=== PATIENT | male | born 1975 ===

== ENCOUNTER 2020-03-25 12:56 | Inpatient (IN) | payer OTHER ==
[2020-03-25] MEDS ORDERED: MORPHINE 2 MG/1 ML INJ IV ONE (14:46)
[2020-03-25] MEDS ORDERED: SODIUM CHLORIDE 0.9% 1000 ML 1,000 ML IV ONE (14:47)
[2020-03-25 16:42] LABS: Hematocrit 21.5 % (35.5-45.6); Hemoglobin 7.3 gm/dl (11.8-15.2); Mean Corpuscular HGB Conc 34 % (32-34); Mean Corpuscular Volume 104 fl (84-94); Platelet Count 244 K/mm3 (140-440); Red Blood Count 2.07 M/mm3 (3.65-5.03)
--- NOTE | 2020-03-25 18:05 | Emergency Department Report ---
Blank Doc - Documentation Documentation: 44-year-old -[place] male currently incarcerated presents emergency de partment complaining of having a sickle cell flareup he currently has a port to the right chest which he presents to the emergency department from the detention he has been in the detention from March 12 till today. Only gets Procrit every but missed it was diagnosed as well has been feeling increasingly more weak and fatigued with some diffuse body aches and pains This initial assessment/diagnostic orders/clinical plan/treatment(s) is/are subject to change based on patients health status, clinical progression and re- assessment by fellow clinical providers in the ED. Further treatment and workup at subsequent clinical providers discretion. Patient/guardian urged not to elope from the ED as their condition may be serious if not clinically assessed and managed. Initial orders include: Sickle cell evaluation
[2020-03-25 20:03] LABS: Anisocytosis 1+; Total Cells Counted 100
[2020-03-25 20:48] LABS: Burr Cells Rare; Ovalocytes Rare; Target Cells Rare
[2020-03-25 20:49] LABS: Platelet Estimate Consistent w Auto; Tear Drop Cells Rare
[2020-03-25] MEDS ORDERED: oxyCODONE /ACETAMINOPHEN 5-325MG TAB PO ONE (21:50)
[2020-03-25] MEDS ORDERED: ONDANSETRON 4 MG/2 ML INJ IV STA (21:55)
[2020-03-25] MEDS ORDERED: HYDROmorphone 1 MG/1 ML INJ IV ONE (22:25)
--- NOTE | 2020-03-25 22:27 | Emergency Department Report ---
ED General Adult HPI - General Chief complaint: Sickle Cell Crisis Stated complaint: SICKLE CELL CRISIS PUI?: No Time Seen by Provider: 03/25/20 22:06 Source: patient, police, RN notes reviewed Mode of arrival: Stretcher Limitations: Physical Limitation - History of Present Illness Initial comments: The patient was evaluated in the emergency department for symptoms described in the history of present illness. He/she was evaluated in the context of the global COVID-19 pandemic, which necessitated consideration that the patient might be at risk for infection with the virus that causes COVID-19. Institutional protocols and algorithms that pertain to the evaluation of patients at risk for COVID-19 are in a state of rapid change based on information released by regulatory bodies including the CDC and federal and state organizations. These policies and algorithms were followed during the patient's care in the emergency department. Please note that these policies, procedures and recommendations changed on a rapid basis. Patient is a pleasant 44-year-old gentleman who is not known to myself previously. Unfortunately, he is currently incarcerated, reports a history of stage IV renal insufficiency, sickle cell disease, and gout. Apparently, his hematology performance solutions specialist is Dr. Nielsen. His oracle drm consultant works at [employer]. He presents to the ER with a complaint of 11 days of sickle cell pain crisis. He typically gets hydrocodone and folic acid, but secondary to be incarcerated, he reports that he is not been able to get his medications on a regular basis. He describes diffuse body pain, myalgias and arthralgias, abdominal cramping, mild nausea. No headache or neck pain, no chest pain. No fever, no loss of taste, no loss of smell, denies cough to myself, no diarrhea, no dysuria, has scant urine production. He has a right-sided thoracic wall port, which has apparently been accessed at the [facility], where he reports he is received IV fluids, but no intravenous analgesia. Pain is sharp, throbbing and aching, increases with palpation, range of motion, decreases with rest, position, and pain medication. Patient specifically denies loss of taste, loss of smell, fever, and exposure to known Covid individuals. -: Gradual, days(s) Location: back, abdomen, left, right, upper extremity, lower extremity Severity scale (0 -10): 8 Consistency: constant Improves with: rest Worsens with: movement - Related Data Allergies Allergy/AdvReac Type Severity Reaction Status Date / Time ketorolac [From Toradol] Allergy Unknown Verified 03/25/20 13:12 promethazine [From Phenergan] Allergy Unknown Verified 03/25/20 13:12 ED Review of Systems ROS: Stated complaint: SICKLE CELL CRISIS Other details as noted in HPI Constitutional: malaise, weakness. denies: fever Eyes: denies: eye discharge ENT: denies: congestion Respiratory: denies: cough Cardiovascular: denies: chest pain Gastrointestinal: abdominal pain, nausea Genitourinary: denies: dysuria Musculoskeletal: back pain, arthralgia, myalgia Neurological: weakness Psychiatric: anxiety Hematological/Lymphatic: denies: easy bleeding ED Past Medical Hx - Past Medical History Previous Medical History?: Yes Hx Sickle Cell Disease: Yes Additional medical history: Gout. Stage IV kidney failure - Surgical History Past Surgical History?: Yes Additional Surgical History: Right hip replacement - Social History Smoking Status: Never Smoker Substance Use Type: None ED Physical Exam - General Limitations: Physical Limitation General appearance: alert, anxious, in distress - Head Head exam: Present: atraumatic, normocephalic - Eye Eye exam: Present: normal appearance, EOMI. Absent: nystagmus - ENT ENT exam: Present: mucous membranes dry, normal external ear exam - Neck Neck exam: Present: normal inspection, full ROM. Absent: tenderness, meningismus - Respiratory Respiratory exam: Present: normal lung sounds bilaterally. Absent: respiratory distress, wheezes, rales, rhonchi, stridor - Cardiovascular Cardiovascular Exam: Present: regular rate, normal rhythm, normal heart sounds. Absent: bradycardia, tachycardia, irregular rhythm, systolic murmur, diastolic murmur, rubs, gallop - GI/Abdominal GI/Abdominal exam: Present: soft, tenderness. Absent: distended, guarding, rebound, pulsatile mass, hernia - Rectal Rectal exam: Present: deferred - Extremities Exam Extremities exam: Present: normal inspection, full ROM, tenderness (There is diffuse long bony tenderness in the bilateral upper and lower extremities), other (2+ pulses noted in the bilateral upper and lower extremity) - Back Exam Back exam: Present: normal inspection, paraspinal tenderness. Absent: tenderness - Neurological Exam Neurological exam: Present: alert, other (No facial droop. Tongue midline. Extraocular movements intact bilaterally. Facial sensation intact to light katy ch in V1, V2, V3 distribution bilaterally. 5 and a 5 strength in 4 extremities. Sensation intact to light touch in 4 extremities.) - Psychiatric Psychiatric exam: Present: anxious - Skin Skin exam: Present: warm, dry, intact, normal color. Absent: rash ED Course Vital Signs 03/25/20 03/25/20 03/25/20 14:51 19:04 22:03 Temperature 97.9 F 98.5 F Pulse Rate 83 90 Respiratory 20 20 18 Rate Blood Pressure 154/100 Blood Pressure 158/110 [Right] O2 Sat by Pulse 100 98 Oximetry - Reevaluation(s) Reevaluation #1: 03/25/20 22:53 Differential diagnosis, including but not limited to: Sickle cell crisis, pneumonia, urinary tract infection, intra-abdominal infection, dehydration, electrolyte derangement Assessment and plan: 44-year-old gentleman with complex past medical history, including sickle cell, gout, and reported stage IV renal insufficiency. Access port, start gentle fluids, initiate analgesia, place patient on pvc monitor, obtain CT scan of the abdomen pelvis, urinalysis, appropriate laboratory studies, and reassess. Discussed plan of care with the patient, who verbalized understanding, and who is amenable to this plan of care. Reevaluation #2: 03/26/20 01:01 Patient reassessed multiple times. Has required multiple rounds of pain medication. In addition, laboratory studies demonstrate hyperkalemia, potassium 6.7, not hemolyzed, hypoglycemia, metabolic acidosis, renal insufficiency. Contacted the lab myself, and they verified that hyperkalemia is noted an error, and that the potassium is not hemolyzed. Patient put in for Accu-Cheks, and we will continue dextrose fluid. He will be given the hyperkalemia cocktail, with the exception of insulin, given his hypoglycemia. I contacted nephrology on-call, Dr. Costello, and discussed the patient's history, physical, and pertinent laboratory studies. He agrees with the plan of care, and will consult on the patient. I advised the patient that he meets criteria for admission/hospitalization, and we have recommended admission. The patient is amenable to this plan of care. Hospital physician, Dr. Willie Chen to admit ED Medical Decision Making - Lab Data Result diagrams: 03/25/20 16:00 03/25/20 22:49 Vital Signs 03/25/20 03/25/20 03/25/20 14:51 19:04 22:03 Temperature 97.9 F 98.5 F Pulse Rate 83 90 Respiratory 20 20 18 Rate Blood Pressure 154/100 Blood Pressure 158/110 [Right] O2 Sat by Pulse 100 98 Oximetry Lab Results 03/25/20 Range/Units 16:00 WBC 16.4 H (4.5-11.0) K/mm3 RBC 2.07 L (3.65-5.03) M/mm3 Hgb 7.3 L (11.8-15.2) gm/dl Hct 21.5 L (35.5-45.6) % MCV 104 H (84-94) fl MCH 36 H (28-32) pg MCHC 34 (32-34) % RDW 18.0 H (13.2-15.2) % Plt Count 244 (140-440) K/mm3 Lymph # (Auto) Vault Service Mechanic Add Manual Diff Complete Total Counted 100 Seg Neuts % (Manual) 54.0 (40.0-70.0) % Band Neutrophils % 0 % Lymphocytes % (Manual) 36.0 H (13.4-35.0) % Reactive Lymphs % (Man) 0 % Monocytes % (Manual) 4.0 (0.0-7.3) % Eosinophils % (Manual) 4.0 (0.0-4.3) % Basophils % (Manual) 2.0 H (0.0-1.8) % Metamyelocytes % 0 % Myelocytes % 0 % Promyelocytes % 0 % Blast Cells % 0 % Nucleated RBC % 1.0 H (0.0-0.9) % Seg Neutrophils # Man 8.9 H (1.8-7.7) K/mm3 Band Neutrophils # 0.0 K/mm3 Lymphocytes # (Manual) 5.9 H (1.2-5.4) K/mm3 Abs React Lymphs (Man) 0.0 K/mm3 Monocytes # (Manual) 0.7 (0.0-0.8) K/mm3 Eosinophils # (Manual) 0.7 H (0.0-0.4) K/mm3 Basophils # (Manual) 0.3 H (0.0-0.1) K/mm3 Metamyelocytes # 0.0 K/mm3 Myelocytes # 0.0 K/mm3 Promyelocytes # 0.0 K/mm3 Blast Cells # 0.0 K/mm3 WBC Morphology Not Reportable Hypersegmented Neuts Not Reportable Hyposegmented Neuts Not Reportable Hypogranular Neuts Not Reportable Smudge Cells Not Reportable Toxic Granulation Not Reportable Toxic Vacuolation Not Reportable Dohle Bodies Not Reportable Pelger-Huet Anomaly Not Reportable Sammy Rods Not Reportable Platelet Estimate Consistent w auto Clumped Platelets Not Reportable Plt Clumps, EDTA Not Reportable Large Platelets Not Reportable Giant Platelets Not Reportable Platelet Satelliting Not Reportable Plt Morphology Comment Not Reportable RBC Morphology Not Reportable Dimorphic RBCs Not Reportable Polychromasia Not Reportable Hypochromasia Not Reportable Poikilocytosis Not Reportable Anisocytosis 1+ Microcytosis Few Macrocytosis Not Reportable Spherocytes Not Reportable Pappenheimer Bodies Not Reportable Sickle Cells Not Reportable Target Cells Rare Tear Drop Cells Rare Ovalocytes Rare Helmet Cells Not Reportable [place] Bodies Not Reportable [place] Rings Not Reportable [place] Cells Rare Bite Cells Not Reportable Crenated Cell Not Reportable Elliptocytes Not Reportable Acanthocytes (Spur) Not Reportable Rouleaux Not Reportable Hemoglobin C Crystals Not Reportable Schistocytes Not Reportable Malaria parasites Not Reportable Percent Retic 2.51 (0.78-2.58) % Teto Bodies Not Reportable Hem Pathologist Commnt No - EKG Data -: EKG Interpreted by Ar EKG shows normal: sinus rhythm Rate: tachycardia - EKG Data When compared to previous EKG there are: previous EKG unavailable 03/26/20 02:16 Sinus rhythm, tachycardia, 139 bpm, left axis deviation, left anterior fascicular block, motion artifact, nonspecific T wave abnormalities. The EKG is abnormal. The EKG is not a STEMI. No prior available for comparison. Intervals within normal limits. - Radiology Data Radiology results: pending, report reviewed, image reviewed Print Report Referring Physician: EDMOND ORTIZ Patient Name: RONEN YOUNG Date of : 1975 Sex: Male Report Date: 2020-03-25 Report Status: Finalized Findings [facility] [address] [place] [address] XRay Report Signed Patient: RONEN YOUNG MR#: [id number] : 1975 Acct:[id number] Age/Sex: 44 / M ADM Date: 03/25/20 Loc: ED Attending Dr: Ordering Physician: JUSTIN GUEVARA Date of Service: 03/25/20 Procedure(s): XR chest routine 2V Accession Number(s): [id number] cc: JUSTIN GUEVARA Fluoro Time In Minutes: CHEST 2 VIEWS INDICATION / CLINICAL INFORMATION: MAIN. Pain with elevated UVC. COMPARISON: None available. FINDINGS: SUPPORT DEVICES: Right chest wall Port-A-Cath with its tip at the superior atrial caval junction. HEART / MEDIASTINUM: Minimally enlarged cardiac silhouette. LUNGS / PLEURA: Bilateral coarsened interstitial lung markings are likely a chronic finding. No confluent infiltrates or pleural effusions. No pneumothorax. ADDITIONAL FINDINGS: Osteonecrosis of the bilateral humeral heads. Chronic osseous findings of the spine consistent with provided history of sickle cell disease. Prior cholecystectomy. IMPRESSION: 1. Bilateral coarsened interstitial lung markings are likely chronic finding. 2. No confluent infiltrates. 3. Right chest wall Port-A-Cath in appropriate position. 4. Osseous findings consistent with provided history of sickle cell disease. Signer Name: Donn Moore MD Signed: 03/25/2020 10:31 PM Workstation Name: [id number] Transcribed By: CH Dictated By: DONN MOORE Electronically Authenticated By: DONN MOORE Signed Date/Time: 03/25/202230 DD/ 28 TD/TT: Print Report Referring Physician: SUMIT VILLANUEVA Patient Name: RONEN YOUNG Date of : 1975 Sex: Male Report Date: 2020-03-25 Report Status: Finalized Findings [address] [address] Cat Scan Report Signed Patient: RONEN YOUNG MR#: [id number] : 1975 Acct:[id number] Age/Sex: 44 / M ADM Date: 03/25/20 Loc: ED Attending Dr: Ordering Physician: SUMIT VILLANUEVA MD Date of Service: 03/25/20 Procedure(s): CT abdomen pelvis wo con Accession Number(s): [id number] cc: SUMIT VILLANUEVA MD CT ABDOMEN AND PELVIS WITHOUT CONTRAST HISTORY: Abdominal pain, nausea, vomiting COMPARISON: None TECHNIQUE: Routine abdominal and pelvic CT exam performed without contrast. Lack of intravenous contrast limits evaluation of the vascular and solid organs.. All CT scans at this location are performed using CT dose reduction for ALARA by means of automated exposure control. FINDINGS: CT ABDOMEN: Lung Bases: There is mild chronic appearing interstitial disease in the included lung bases. There are also bilateral paraspinal masses in the lower thorax. The largest is on the left and measures 3.5 x 2.7 cm. Liver: No significant abnormality. Biliary: Gallbladder is surgically absent. 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 Pancreas: No significant abnormality. Adrenals: No significant abnormality. Kidneys: No acute findings. Small cyst in the left kidney. Lymphatics: No lymphadenopathy. Vasculature: No significant abnormality. Bowel/Peritoneum: No significant abnormality. No free air. No free fluid. Normal appendix. CT PELVIC: : No significant abnormality. Lymphatics: No lymphadenopathy. Osseous Structures: No aggressive appearing osseous lesions. There is diffuse heterogeneous appearance of the bone marrow consistent with sickle cell disease. There has been previous right hip are not last. 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 Additional Findings: None IMPRESSION: 1. No acute findings in the abdomen and pelvis. 2. Chronic findings consistent with sickle cell disease including heterogeneous appearance of the bone marrow diffusely, chronic bibasilar interstitial lung disease, and autosplenectomy. 3. Small paraspinal masses in the lower thoracic spine are indeterminate but could potentially indicate extra medullary hematopoiesis. Signer Name: Radu Queen MD Signed: 03/25/2020 10:58 PM Workstation Name: [id number] Transcribed By: LÓPEZ Dictated By: Radu Queen MD Electronically Authenticated By: Radu Queen MD Signed Date/Time: 03/25/202257 DD/ 54 TD/TT: Critical Care Time: Yes Critical care time in (mins) excluding proc time.: 35 Critical care attestation.: If time is entered above; I have spent that time in minutes in the direct care of this critically ill patient, excluding procedure time. ED Disposition Clinical Impression: Hyperkalemia, Metabolic acidosis, Hypoglycemia, Abdominal pain, Sickle cell anemia with crisis Disposition: DC-09 OP ADMIT IP TO THIS HOSP Is pt being admited?: Yes Does the pt Need Aspirin: No Condition: Fair
--- NOTE | 2020-03-25 22:35 | XRay Report ---
CHEST 2 VIEWS INDICATION / CLINICAL INFORMATION: MAIN. Pain with elevated UVC. COMPARISON: None available. FINDINGS: SUPPORT DEVICES: Right chest wall Port-A-Cath with its tip at the superior atrial caval junction. HEART / MEDIASTINUM: Minimally enlarged cardiac silhouette. LUNGS / PLEURA: Bilateral coarsened interstitial lung markings are likely a chronic finding. No confl uent infiltrates or pleural effusions. No pneumothorax. ADDITIONAL FINDINGS: Osteonecrosis of the bilateral humeral heads. Chronic osseous findings of the sp ine consistent with provided history of sickle cell disease. Prior cholecystectomy. IMPRESSION: 1. Bilateral coarsened interstitial lung markings are likely chronic finding. 2. No confluent infiltrates. 3. Right chest wall Port-A-Cath in appropriate position. 4. Osseous findings consistent with provided history of sickle cell disease. Signer Name: Donn Reyes MD Signed: 03/25/2020 10:31 PM Workstation Name: [id number]
--- NOTE | 2020-03-25 23:02 | Cat Scan Report ---
CT ABDOMEN AND PELVIS WITHOUT CONTRAST HISTORY: Abdominal pain, nausea, vomiting COMPARISON: None TECHNIQUE: Routine abdominal and pelvic CT exam performed without contrast. Lack of intravenous cont rast limits evaluation of the vascular and solid organs.. All CT scans at this location are performed using CT dose reduction for ALARA by means of automated exposure control. FINDINGS: CT ABDOMEN: Lung Bases: There is mild chronic appearing interstitial disease in the included lung bases. There ar e also bilateral paraspinal masses in the lower thorax. The largest is on the left and measures 3.5 x 2.7 cm. Liver: No significant abnormality. Biliary: Gallbladder is surgically absent. 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 Pancreas: No significant abnormality. Adrenals: No significant abnormality. Kidneys: No acute findings. Small cyst in the left kidney. Lymphatics: No lymphadenopathy. Vasculature: No significant abnormality. Bowel/Peritoneum: No significant abnormality. No free air. No free fluid. Normal appendix. CT PELVIC: : No significant abnormality. Lymphatics: No lymphadenopathy. Osseous Structures: No aggressive appearing osseous lesions. There is diffuse heterogeneous appearanc e of the bone marrow consistent with sickle cell disease. There has been previous right hip are not l ast. 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 Additional Findings: None IMPRESSION: 1. No acute findings in the abdomen and pelvis. 2. Chronic findings consistent with sickle cell disease including heterogeneous appearance of the bon e marrow diffusely, chronic bibasilar interstitial lung disease, and autosplenectomy. 3. Small paraspinal masses in the lower thoracic spine are indeterminate but could potentially indica te extra medullary hematopoiesis. Signer Name: Radu Queen MD Signed: 03/25/2020 10:58 PM Workstation Name: [email or web address]
[2020-03-25] MEDS: D5W/0.45% NACL 1,000 ML IV SCH (23:06)
[2020-03-26] MEDS ORDERED: HYDROmorphone 1 MG/1 ML INJ IV ONE (00:17)
[2020-03-26 00:39] LABS: Calcium 9.2 mg/dL (8.4-10.2)
[2020-03-26 00:40] LABS: Albumin 4.5 g/dL (3.9-5)
[2020-03-26] MEDS ORDERED: DEXTROSE 50% IN WATER (25GM) 50 ML VIAL IV PRN (00:52)
[2020-03-26 00:55] LABS: Bilirubin,Urine NEG (Negative); Blood,Urine NEG (Negative); Color,Urine Yellow (Yellow); Mucus,Urine FEW /HPF; Urobilinogen,Urine < 2.0 mg/dL (<2.0)
[2020-03-26 00:57] LABS: Protein,Urine >500 mg/dL (Negative)
[2020-03-26] MEDS ORDERED: ALBUTEROL 2.5 MG/3 ML NEBU IH ONE ×2 (01:00→02:43)
[2020-03-26] MEDS ORDERED: SODIUM POLYSTYRENE 15 GM/60 ML ORAL LIQD PO ONE (01:00)
[2020-03-26] MEDS ORDERED: CALCIUM GLUCONATE 1,000 MG in SODIUM CHLORIDE 0.9% 100 ML IV ONE (01:00)
[2020-03-26] MEDS ORDERED: SODIUM BICARB 8.4% 50 MEQ/50 ML SYRINGE IV ONE ×2 (01:00→02:57)
[2020-03-26] MEDS ORDERED: HYDROmorphone 1 MG/1 ML INJ IV STA (02:36)
[2020-03-26] MEDS ORDERED: HYDROmorphone 1 MG/1 ML INJ ONE (02:44)
[2020-03-26] MEDS ORDERED: MAGNESIUM HYDROXIDE (MOM) ORAL LIQD UDC PO PRN (02:58)
[2020-03-26] MEDS ORDERED: DEXTROSE 50% IN WATER (25GM) 50 ML SYRINGE IV PRN (03:00)
[2020-03-26] MEDS ORDERED: SODIUM POLYSTYRENE 15 GM/60 ML ORAL LIQD ONE (03:10)
[2020-03-26] MEDS ORDERED: diphenhydrAMINE 50 MG/ML VIAL ONE (04:08)
[2020-03-26] MEDS: diphenhydrAMINE 50 MG/ML VIAL IV PRN ×4 (04:10→19:28)
[2020-03-26] MEDS: D5W/0.45% NACL 1,000 ML IV SCH (04:20)
--- NOTE | 2020-03-26 04:22 | History and Physical Report ---
History of Present Illness Date of examination: 03/26/20 Date of admission: 03/26/20 01:07 Chief complaint: Generalized body aches and pain History of present illness: 44-year-old male with known history of sickle cell disease, chronic kidney disease and gout and who is currently incarcerated presented to the emergency room today complaining of generalized body aches and pain, abdominal cramping and nausea. Pain is more in the lower extremities and lower back. Patient follows up with a lard refiner at [employer] Dr. Nielsen. He is normally on hydrocodone and folic acid at home but he has not been able to get his medication on a regular basis because he is currently incarcerated. He denies any fever or chills, no shortness of breath, no headache or dizziness, no hematuria or dysuria, no chest pain. Work-up in the emergency room today reveals a hemoglobin of 7.3, Leukocytosis.Was hypoglycemic on arrival. He also has a hyperkalemia in addition to the renal failure. CT of the abdomen and pelvis reveals: 1. No acute findings in the abdomen and pelvis. 2. Chronic findings consistent with sickle cell disease including heterogeneous appearance of the bone marrow diffusely, chronic bibasilar interstitial lung disease, and autosplenectomy. 3. Small paraspinal masses in the lower thoracic spine are indeterminate but could potentially indicate extra medullary hematopoiesis. Chest x-ray reveals:1. Bilateral coarsened interstitial lung markings are likely chronic finding. 2. No confluent infiltrates. 3. Right chest wall Port-A-Cath in appropriate position. 4. Osseous findings consistent with provided history of sickle cell disease. Patient is being admitted for sickle cell pain crisis, renal failure and hyperkalemia. Past History Past Medical History: other (Sickle cell disease,CKD) Past Surgical History: Other (Port placement right anterior chest wall) Social history: other (Currently incarcerated) Family history: no significant family history Medications and Allergies Allergies Allergy/AdvReac Type Severity Reaction Status Date / Time ketorolac [From Toradol] Allergy Unknown Verified 03/25/20 13:12 promethazine [From Phenergan] Allergy Unknown Verified 03/25/20 13:12 Active Meds: Active Medications Acetaminophen (Tylenol) 650 mg PO Q4H PRN PRN Reason: Pain MILD(1-3)/Fever >100.5/KRISHNAMURTHY Bisacodyl (Dulcolax) 10 mg IA QDAY PRN PRN Reason: Constipation unrelieved by MOM Dextrose (D50w (25gm) Syringe) 0 ml IV Q30MIN PRN; Protocol PRN Reason: Hypoglycemia Diphenhydramine HCl (Benadryl) 25 mg IV Q6H PRN PRN Reason: Itching Last Admin: 03/26/20 04:10 Dose: 25 mg Documented by: Folic Acid (Folvite) 1 mg PO QDAY [facility] Heparin Sodium (Porcine) (Heparin) 5,000 unit SUB-Q Q8HR NARGIS Hydromorphone HCl (Dilaudid) 1 mg IV Q3H PRN PRN Reason: Pain , Severe (7-10) Dextrose/Sodium Chloride (D5/0.45ns) 1,000 mls @ 150 mls/hr IV DIRECT NARGIS Last Admin: 03/25/20 23:06 Dose: 150 mls/hr Documented by: Magnesium Hydroxide (Milk Of Magnesia) 30 ml PO Q4H PRN PRN Reason: Constipation Multivitamins (Theragran Tab) 1 each PO QDAY [facility] Ondansetron HCl (Zofran) 4 mg IV Q8H PRN PRN Reason: Nausea And Vomiting Senna (Senokot) 17.2 mg PO QHS NARGIS Sodium Chloride (Sodium Chloride Flush Syringe 10 Ml) 10 ml IV BID NARGIS Sodium Chloride (Sodium Chloride Flush Syringe 10 Ml) 10 ml IV PRN PRN PRN Reason: LINE FLUSH Review of Systems Constitutional: no fever, no chills Cardiovascular: no chest pain, no palpitations Respiratory: no cough, no shortness of breath Gastrointestinal: no abdominal pain, no nausea, no vomiting Genitourinary Male: no dysuria, no hematuria, no flank pain Musculoskeletal: low back pain, myalgias, no neck pain Integumentary: no rash, no pruritis Neurological: no headaches, no confusion Psychiatric: no anxiety, no depression Exam - Constitutional Vitals: Temp Pulse Resp BP Pulse Ox 98.5 F 139 H 17 124/82 99 03/25/20 19:04 03/26/20 03:46 03/26/20 03:46 03/26/20 03:46 03/26/20 03:46 General appearance: Present: no acute distress, well-nourished - EENT Eyes: Present: PERRL, EOM intact. Absent: scleral icterus ENT: hearing intact, clear oral mucosa, dentition normal - Neck Neck: Present: supple, normal ROM - Respiratory Respiratory effort: normal Respiratory: bilateral: CTA - Cardiovascular Rhythm: regular Heart Sounds: Present: S1 & S2. Absent: gallop, systolic murmur, diastolic murmur, rub - Extremities Extremities: no ischemia, pulses intact, pulses symmetrical, No edema, Full ROM, abnormal (Mild tenderness on legs bilaterally.) Peripheral Pulses: within normal limits - Abdominal General gastrointestinal: Present: soft, non-tender, non-distended, normal bowel sounds. Absent: mass - Integumentary Integumentary: Present: clear, warm, dry. Absent: rash - Musculoskeletal Musculoskeletal: strength equal bilaterally - Psychiatric Psychiatric: appropriate mood/affect, intact judgment & insight, memory intact, cooperative - Neurologic Neurologic: CNII-XII intact, no focal deficits, moves all extremities Results - Labs CBC & Chem 7: 03/25/20 16:00 03/25/20 22:49 Labs: Abnormal lab results 03/25/20 03/25/20 Range/Units 16:00 22:49 WBC 16.4 H (4.5-11.0) K/mm3 RBC 2.07 L (3.65-5.03) M/mm3 Hgb 7.3 L (11.8-15.2) gm/dl Hct 21.5 L (35.5-45.6) % MCV 104 H (84-94) fl MCH 36 H (28-32) pg RDW 18.0 H (13.2-15.2) % Lymphocytes % (Manual) 36.0 H (13.4-35.0) % Basophils % (Manual) 2.0 H (0.0-1.8) % Nucleated RBC % 1.0 H (0.0-0.9) % Seg Neutrophils # Man 8.9 H (1.8-7.7) K/mm3 Lymphocytes # (Manual) 5.9 H (1.2-5.4) K/mm3 Eosinophils # (Manual) 0.7 H (0.0-0.4) K/mm3 Basophils # (Manual) 0.3 H (0.0-0.1) K/mm3 Potassium 6.7 H* (3.6-5.0) mmol/L Chloride 110.6 H (98-107) mmol/L Carbon Dioxide 14 L (22-30) mmol/L BUN 29 H (9-20) mg/dL Creatinine 3.8 H (0.8-1.3) mg/dL Glucose 60 L (75-100) mg/dL Lipase 71 H (13-60) units/L Assessment and Plan - Patient Problems (1) Sickle cell anemia with crisis Current Visit: Yes Status: Acute Plan to address problem: Patient started on IV fluid. We also placed on IV analgesic medication. We will resume routine home medications. (2) CKD (chronic kidney disease) Current Visit: Yes Status: Acute Plan to address problem: Patient has known history of chronic kidney disease. We will place a consult to nephrology for evaluation. (3) Hyperkalemia Current Visit: Yes Status: Acute Plan to address problem: Patient given Kayexalate,calcium gluconate,sodium bicarbonate in the ER. Will monitor potassium levels. (4) Metabolic acidosis Current Visit: Yes Status: Acute Plan to address problem: Possibly from the chronic kidney disease. Will monitor chemistry (5) DVT prophylaxis Current Visit: Yes Status: Acute Plan to address problem: Patient placed on subcutaneous heparin. (6) Full code status Current Visit: Yes Status: Acute
[2020-03-26] MEDS ORDERED: D5W/0.45% NACL 1,000 ML IV SCH (05:00)
[2020-03-26] MEDS: HYDROmorphone 1 MG/1 ML INJ IV PRN ×2 (05:32→10:07)
[2020-03-26] MEDS: HEPARIN 5,000 UNIT/1 ML VIAL SUB-Q SCH ×3 (05:35→21:43)
[2020-03-26] MEDS: ONDANSETRON 4 MG/2 ML INJ IV PRN (05:41)
[2020-03-26 06:21] LABS: Calcium 8.6 mg/dL (8.4-10.2); Mean Corpuscular HGB Conc 34 % (32-34); Mean Corpuscular Volume 105 fl (84-94); Platelet Count 188 K/mm3 (140-440); Red Blood Count 1.64 M/mm3 (3.65-5.03); Red Cell Distribution Width 18.7 % (13.2-15.2)
[2020-03-26 06:24] LABS: Basophils % (Auto) 0.1 % (0.0-1.8); Eosinophils % (Auto) 0.3 % (0.0-4.3); Lymphocytes # (Auto) 0.3 K/mm3 (1.2-5.4); Lymphocytes % (Auto) 2.2 % (13.4-35.0); Monocytes # (Auto) 0.1 K/mm3 (0.0-0.8); Monocytes % (Auto) 0.6 % (0.0-7.3)
[2020-03-26 06:28] LABS: Hemoglobin 5.8 gm/dl (11.8-15.2)
[2020-03-26 06:29] LABS: Hematocrit 17.2 % (35.5-45.6)
[2020-03-26] MEDS ORDERED: SODIUM CHLORIDE 0.9% 500 ML 500 ML IV NR (08:21)
--- NOTE | 2020-03-26 08:46 | Hem/Onc Consultation ---
History of Present Illness - History of Present Illness HEME DATA REVIEW 44yo disabled AA man with SCD, CKD creat 4 came from nursing home per notes unable to get pain med hydrocodone c/o pain and nausea CT of the abdomen and pelvis reveals: 1. No acute findings in the abdomen and pelvis. 2. Chronic findings consistent with sickle cell disease including heterogeneous appearance of the bone marrow diffusely, chronic bibasilar interstitial lung disease, and autosplenectomy. 3. Small paraspinal masses in the lower thoracic spine are indeterminate but could potentially indicate extra medullary hematopoiesis. Chest x-ray reveals:1. Bilateral coarsened interstitial lung markings are likely chronic finding. 2. No confluent infiltrates. 3. Right chest wall Port-A-Cath in appropriate position. 4. Osseous findings consistent with provided history of sickle cell disease. DATA REVIEW BELOW retic 2.5% IMPRESSION: sickle cell disease chronic pain could be due to SCD presumed chronic pain med requirement severe anemia due to chronic hemolytic anemia, hemodilution low retic count could be a problem-maybe "aplastic crisis" but probably related to CKD immunocompromised, with oz of infection but no obvious infection REC: RBC transfusions for goal HCT>23 (to help with pain control) opiate meds as needed for pain try to communicate with health care provider in his institution about pain meds labs to include LDH, hgb electrophoresis Vital Signs Temp Pulse Resp BP Pulse Ox 98.2 F 126 H 18 133/94 97 03/26/20 07:38 03/26/20 07:38 03/26/20 07:38 03/26/20 07:38 03/26/20 07:38 Temperature -Last 24 Hours Temperature 98.2 F Temperature 99.7 F Temperature 98.4 F Temperature 98.5 F Temperature 97.9 F Active Medications Folic Acid (Folvite) 1 mg PO QDAY NARGIS Heparin Sodium (Porcine) (Heparin) 5,000 unit SUB-Q Q8HR NARGIS Last Admin: 03/26/20 05:35 Dose: 5,000 unit Documented by: Hydromorphone HCl (Dilaudid) 1 mg IV Q3H PRN PRN Reason: Pain , Severe (7-10) Last Admin: 03/26/20 05:32 Dose: 1 mg Documented by: Laboratory Last Values WBC 13.3 K/mm3 (4.5-11.0) H 03/26/20 05:00 Hgb 5.8 gm/dl (11.8-15.2) L* 03/26/20 05:00 Hct 17.2 % (35.5-45.6) L* 03/26/20 05:00 MCV 105 fl (84-94) H 03/26/20 05:00 Plt Count 188 K/mm3 (140-440) 03/26/20 05:00 Creatinine 4.2 mg/dL (0.8-1.3) H 03/26/20 05:00 Urine Mucus Few /HPF 03/26/20 00:32 Past History Past Medical History: other (Sickle cell disease,CKD) Past Surgical History: Other (Port placement right anterior chest wall) Social history: other (Currently incarcerated) Family history: no significant family history Medications and Allergies Allergies Allergy/AdvReac Type Severity Reaction Status Date / Time ketorolac [From Toradol] Allergy Unknown Verified 03/25/20 13:12 promethazine [From Phenergan] Allergy Unknown Verified 03/25/20 13:12 Active Meds: Active Medications Acetaminophen (Tylenol) 650 mg PO Q4H PRN PRN Reason: Pain MILD(1-3)/Fever >100.5/KRISHNAMURTHY Bisacodyl (Dulcolax) 10 mg SD QDAY PRN PRN Reason: Constipation unrelieved by MOM Dextrose (D50w (25gm) Syringe) 0 ml IV Q30MIN PRN; Protocol PRN Reason: Hypoglycemia Diphenhydramine HCl (Benadryl) 25 mg IV Q6H PRN PRN Reason: Itching Last Admin: 03/26/20 04:10 Dose: 25 mg Documented by: Folic Acid (Folvite) 1 mg PO QDAY NARGIS Heparin Sodium (Porcine) (Heparin) 5,000 unit SUB-Q Q8HR NARGIS Last Admin: 03/26/20 05:35 Dose: 5,000 unit Documented by: Hydromorphone HCl (Dilaudid) 1 mg IV Q3H PRN PRN Reason: Pain , Severe (7-10) Last Admin: 03/26/20 05:32 Dose: 1 mg Documented by: Dextrose/Sodium Chloride (D5/0.45ns) 1,000 mls @ 150 mls/hr IV DIRECT NARGIS Last Admin: 03/26/20 05:45 Dose: 150 mls/hr Documented by: Sodium Chloride (Nacl 0.9% 500 Ml) 500 mls @ 0 mls/hr IV ONCE NR Stop: 03/26/20 18:00 Magnesium Hydroxide (Milk Of Magnesia) 30 ml PO Q4H PRN PRN Reason: Constipation Multivitamins (Theragran Tab) 1 each PO QDAY NARGIS Ondansetron HCl (Zofran) 4 mg IV Q8H PRN PRN Reason: Nausea And Vomiting Last Admin: 03/26/20 05:41 Dose: 4 mg Documented by: Pedrito (Senokot) 17.2 mg PO QHS NARGIS Sodium Chloride (Sodium Chloride Flush Syringe 10 Ml) 10 ml IV BID NARGIS Sodium Chloride (Sodium Chloride Flush Syringe 10 Ml) 10 ml IV PRN PRN PRN Reason: LINE FLUSH Exam - Constitutional Vitals: Last Vital Signs Temp 98.2 F 03/26/20 07:38 Pulse 126 H 03/26/20 07:38 Resp 18 03/26/20 07:38 BP 133/94 03/26/20 07:38 Pulse Ox 97 03/26/20 07:38 Results - Labs lab Results: Laboratory Results - last 24 hr 03/25/20 03/25/20 03/26/20 16:00 22:49 00:32 WBC 16.4 H RBC 2.07 L Hgb 7.3 L Hct 21.5 L MCV 104 H MCH 36 H MCHC 34 RDW 18.0 H Plt Count 244 Lymph % (Auto) [place] % (Auto) Eos % (Auto) Baso % (Auto) Lymph # (Auto) Batch Heat Treat Operator [place] # (Auto) Eos # (Auto) Baso # (Auto) Add Manual Diff Complete Total Counted 100 Seg Neutrophils % Seg Neuts % (Manual) 54.0 Band Neutrophils % 0 Lymphocytes % (Manual) 36.0 H Reactive Lymphs % (Man) 0 Monocytes % (Manual) 4.0 Eosinophils % (Manual) 4.0 Basophils % (Manual) 2.0 H Metamyelocytes % 0 Myelocytes % 0 Promyelocytes % 0 Blast Cells % 0 Nucleated RBC % 1.0 H Seg Neutrophils # Seg Neutrophils # Man 8.9 H Band Neutrophils # 0.0 Lymphocytes # (Manual) 5.9 H Abs React Lymphs (Man) 0.0 Monocytes # (Manual) 0.7 Eosinophils # (Manual) 0.7 H Basophils # (Manual) 0.3 H Metamyelocytes # 0.0 Myelocytes # 0.0 Promyelocytes # 0.0 Blast Cells # 0.0 WBC Morphology Not Reportable Hypersegmented Neuts Not Reportable Hyposegmented Neuts Not Reportable Hypogranular Neuts Not Reportable Smudge Cells Not Reportable Toxic Granulation Not Reportable Toxic Vacuolation Not Reportable Dohle Bodies Not Reportable Pelger-Huet Anomaly Not Reportable Sammy Rods Not Reportable Platelet Estimate Consistent w auto Clumped Platelets Not Reportable Plt Clumps, EDTA Not Reportable Large Platelets Not Reportable Giant Platelets Not Reportable Platelet Satelliting Not Reportable Plt Morphology Comment Not Reportable RBC Morphology Not Reportable Dimorphic RBCs Not Reportable Polychromasia Not Reportable Hypochromasia Not Reportable Poikilocytosis Not Reportable Anisocytosis 1+ Microcytosis Few Macrocytosis Not Reportable Spherocytes Not Reportable Pappenheimer Bodies Not Reportable Sickle Cells Not Reportable Target Cells Rare Tear Drop Cells Rare Ovalocytes Rare Helmet Cells Not Reportable Shen-Eschbach Bodies Not Reportable [place] Rings Not Reportable [place] Cells Rare Bite Cells Not Reportable Crenated Cell Not Reportable Elliptocytes Not Reportable Acanthocytes (Spur) Not Reportable Rouleaux Not Reportable Hemoglobin C Crystals Not Reportable Schistocytes Not Reportable Malaria parasites Not Reportable Percent Retic 2.51 Teto Bodies Not Reportable Hem Pathologist Commnt No Sodium 138 Potassium 6.7 H* Chloride 110.6 H Carbon Dioxide 14 L Anion Gap 20 BUN 29 H Creatinine 3.8 H Estimated GFR 17 BUN/Creatinine Ratio 8 Glucose 60 L Calcium 9.2 Magnesium 2.20 Total Bilirubin 0.90 AST 29 ALT 22 Alkaline Phosphatase 109 Total Creatine Kinase 113 Total Protein 7.7 Albumin 4.5 Albumin/Globulin Ratio 1.4 Lipase 71 H Urine Color Yellow Urine Turbidity Clear Urine pH 5.0 Ur Specific [place] 1.012 Urine Protein >500 Urine Glucose (UA) Neg Urine Ketones Neg Urine Blood Neg Urine Nitrite Neg Urine Bilirubin Neg Urine Urobilinogen < 2.0 Ur Leukocyte Esterase Neg Urine WBC (Auto) 3.0 Urine RBC (Auto) 4.0 U Epithel Cells (Auto) < 1.0 Urine Mucus Few 03/26/20 03/26/20 03/26/20 05:00 05:00 05:48 WBC 13.3 H RBC 1.64 L Hgb 5.8 L* Hct 17.2 L* MCV 105 H MCH 36 H MCHC 34 RDW 18.7 H Plt Count 188 Lymph % (Auto) 2.2 L [place] % (Auto) 0.6 Eos % (Auto) 0.3 Baso % (Auto) 0.1 Lymph # (Auto) 0.3 L [place] # (Auto) 0.1 Eos # (Auto) 0.0 Baso # (Auto) 0.0 Add Manual Diff Total Counted Seg Neutrophils % Batch Heat Treat Operator Seg Neuts % (Manual) Band Neutrophils % Lymphocytes % (Manual) Reactive Lymphs % (Man) Monocytes % (Manual) Eosinophils % (Manual) Basophils % (Manual) Metamyelocytes % Myelocytes % Promyelocytes % Blast Cells % Nucleated RBC % Seg Neutrophils # 12.9 H Seg Neutrophils # Man Band Neutrophils # Lymphocytes # (Manual) Abs React Lymphs (Man) Monocytes # (Manual) Eosinophils # (Manual) Basophils # (Manual) Metamyelocytes # Myelocytes # Promyelocytes # Blast Cells # WBC Morphology Hypersegmented Neuts Hyposegmented Neuts Hypogranular Neuts Smudge Cells Toxic Granulation Toxic Vacuolation Dohle Bodies Pelger-Huet Anomaly Sammy Rods Platelet Estimate Clumped Platelets Plt Clumps, EDTA Large Platelets Giant Platelets Platelet Satelliting Plt Morphology Comment RBC Morphology Dimorphic RBCs Polychromasia Hypochromasia Poikilocytosis Anisocytosis Microcytosis Macrocytosis Spherocytes Pappenheimer Bodies Sickle Cells Target Cells Tear Drop Cells Ovalocytes Helmet Cells Shen-Eschbach Bodies [place] Rings [place] Cells Bite Cells Crenated Cell Elliptocytes Acanthocytes (Spur) Rouleaux Hemoglobin C Crystals Schistocytes Malaria parasites Percent Retic Teto Bodies Hem Pathologist Commnt Sodium 138 Potassium 4.4 D 4.6 Chloride 110.5 H Carbon Dioxide 15 L Anion Gap 17 BUN 33 H Creatinine 4.2 H Estimated GFR 15 BUN/Creatinine Ratio 8 Glucose 130 H Calcium 8.6 Magnesium Total Bilirubin AST ALT Alkaline Phosphatase Total Creatine Kinase Total Protein Albumin Albumin/Globulin Ratio Lipase Urine Color Urine Turbidity Urine pH Ur Specific [place] Urine Protein Urine Glucose (UA) Urine Ketones Urine Blood Urine Nitrite Urine Bilirubin Urine Urobilinogen Ur Leukocyte Esterase Urine WBC (Auto) Urine RBC (Auto) U Epithel Cells (Auto) Urine Mucus
[2020-03-26] MEDS: FOLIC ACID 1 MG TAB PO SCH (10:08)
[2020-03-26] MEDS: MULTIVITAMINS ,THERAPEUTIC TAB PO SCH (10:08)
--- NOTE | 2020-03-26 15:55 | Consultation ---
History of Present Illness - Reason for Consult Consult date: 03/26/20 acute renal failure, chronic renal failure, hyperkalemia - History of Present Illness The patient is a 44 YO male with history significant for Sickle cell disease, CKD stage 4 and Gout who presented to [facility] ED from local prison / long term with complain of generalized body aches & pain, abdominal cramping and nausea. Pain is more in the lower extremities and lower back. He used to take Hydrocodone and folic acid at home but he has not been able to get his medication on a regular basis because he is currently incarcerated. He denies any fever, chills, shortness of breath, headache, dizziness, vomiting, diarrhea, dysuria, hematuria no chest pain. In the ED Hb was 7.3, Wbc 16.4, K 6.7, Creat 3.8 and BUN 29. CXR revealed Bilateral coarsened interstitial lung markings are likely chronic finding. Patient was admitted for sickle cell pain crisis, KAILA and Hyperkalemia. Nephrology was consulted for further evaluation. Past History Past Medical History: other (Sickle cell disease, CKD) Past Surgical History: Other (Port placement right anterior chest wall) Social history: other (Currently incarcerated) Family history: no significant family history Medications and Allergies Allergies Allergy/AdvReac Type Severity Reaction Status Date / Time ketorolac [From Toradol] Allergy Unknown Verified 03/25/20 13:12 promethazine [From Phenergan] Allergy Unknown Verified 03/25/20 13:12 Active Meds: Active Medications Acetaminophen (Tylenol) 650 mg PO Q4H PRN PRN Reason: Pain MILD(1-3)/Fever >100.5/KRISHNAMURTHY Bisacodyl (Dulcolax) 10 mg MS QDAY PRN PRN Reason: Constipation unrelieved by MOM Dextrose (D50w (25gm) Syringe) 0 ml IV Q30MIN PRN; Protocol PRN Reason: Hypoglycemia Diphenhydramine HCl (Benadryl) 25 mg IV Q6H PRN PRN Reason: Itching Last Admin: 03/26/20 10:07 Dose: 25 mg Documented by: Epoetin Hasmukh (Procrit) 10,000 unit SUB-Q DANNA ONE Stop: 03/26/20 17:01 Folic Acid (Folvite) 1 mg PO QDAY NARGIS Last Admin: 03/26/20 10:08 Dose: 1 mg Documented by: Heparin Sodium (Porcine) (Heparin) 5,000 unit SUB-Q Q8HR [facility] Last Admin: 03/26/20 05:35 Dose: 5,000 unit Documented by: Hydromorphone HCl (Dilaudid) 2 mg IV Q3H PRN PRN Reason: Pain , Severe (7-10) Dextrose/Sodium Chloride (D5/0.45ns) 1,000 mls @ 150 mls/hr IV DIRECT [facility] Last Admin: 03/26/20 05:45 Dose: 150 mls/hr Documented by: Sodium Chloride (Nacl 0.9% 500 Ml) 500 mls @ 0 mls/hr IV ONCE NR Stop: 03/26/20 18:00 Magnesium Hydroxide (Milk Of Magnesia) 30 ml PO Q4H PRN PRN Reason: Constipation Multivitamins (Theragran Tab) 1 each PO QDAY [facility] Last Admin: 03/26/20 10:08 Dose: 1 each Documented by: Ondansetron HCl (Zofran) 4 mg IV Q8H PRN PRN Reason: Nausea And Vomiting Last Admin: 03/26/20 05:41 Dose: 4 mg Documented by: Senna (Senokot) 17.2 mg PO QHS [facility] Sodium Chloride (Sodium Chloride Flush Syringe 10 Ml) 10 ml IV BID [facility] Last Admin: 03/26/20 10:08 Dose: 10 ml Documented by: Sodium Chloride (Sodium Chloride Flush Syringe 10 Ml) 10 ml IV PRN PRN PRN Reason: LINE FLUSH Review of Systems Constitutional: no weight loss, no weight gain, no fever, no chills, no anor exia, no fatigue Cardiovascular: no chest pain, no orthopnea, no edema, no syncope, no lightheadedness, no shortness of breath Respiratory: no cough, no cough with sputum, no hemoptysis, no shortness of breath Gastrointestinal: abdominal pain, nausea, no vomiting, no diarrhea, no melena, no hematochezia Genitourinary Male: no dysuria, no hematuria Integumentary: no redness, no jaundice Neurological: no paralysis, no seizures, no syncope, no convulsions, no aphasia, no change in speech, no change in mentation, no confusion, no memory loss Exam - Vital Signs Vital signs: Vital Signs Temp Pulse Resp BP Pulse Ox 97.9 F 83 20 158/110 100 03/25/20 14:51 03/25/20 14:51 03/25/20 14:51 03/25/20 14:51 03/25/20 14:51 Results - Lab Results 03/26/20 05:00 03/26/20 05:48 Most recent lab results Calcium 8.6 mg/dL (8.4-10.2) 03/26/20 05:00 Magnesium 2.20 mg/dL (1.7-2.3) 03/25/20 22:49 Assessment and Plan 1. Acute kidney injury: Vasomotor KAILA superimposed on CKD stage 4 in the setting of volume depletion. CT abdomen negative for hydro. Urine studies ordered. Monitor renal function. Creatinine level is slightly increased today. Renal prognosis is guarded. Avoid nephrotoxic agents. Meds dosage based on GFR. Monitor for PHYSICIAN OFFICE NURSE needs. 2. FEN: Hyperkalemia, improved with medications, monitor. Hyperchloremic metabolic acidosis, change IV fluids to Sod bicarbonate drip, monitor. Monitor lytes and volume status. 3. Sickle cell crisis: IV fluids and pain meds. Followed by Heme-Onc. 4. Anemia, POA: Epogen. PRBC today. Monitor. Subjective: Patient was seen and examined at the bedside. Examination: General appearance: well-developed, appears stated age, not in distress HEENT: ATNC, pupils equal Neck: trachea midline Respiratory: ctab Heart: regular, S1S2, no murmur Gastrointestinal: soft, normoactive bowel sounds, not tender Integumentary: no rash, warm and dry Neurologic: alert, oriented, moving extremities Ext: no edema
--- NOTE | 2020-03-26 16:00 | Event Note ---
Date: 03/26/20 Patient seen and examined at bedside this morning Hemoglobin drop noted. Ordered 1 unit PRBCs Hematology oncology consulted Continue pain medications
[2020-03-26] MEDS: HYDROmorphone 2 MG/1 ML INJ IV PRN ×3 (16:11→23:30)
[2020-03-26] MEDS ORDERED: EPOETIN ALFA 10,000 UNIT/1 ML INJ SUB-Q ONE (17:00)
[2020-03-26 17:11] LABS: Hematocrit 15.6 % (35.5-45.6); Hemoglobin 5.5 gm/dl (11.8-15.2)
[2020-03-26] MEDS: SODIUM BICARBONATE 150 MEQ in DEXTROSE 5% IN WATER 1,000 ML IV SCH (17:26)
[2020-03-26] MEDS: ACETAMINOPHEN 325 MG TAB PO PRN (19:27)
[2020-03-26] MEDS: SENNOSIDES 8.6 MG TAB PO SCH (21:41)
[2020-03-27] MEDS: diphenhydrAMINE 50 MG/ML VIAL IV PRN ×3 (01:05→20:12)
[2020-03-27] MEDS: HYDROmorphone 2 MG/1 ML INJ IV PRN ×7 (02:59→23:05)
[2020-03-27] MEDS: ONDANSETRON 4 MG/2 ML INJ IV PRN ×3 (05:48→23:06)
[2020-03-27] MEDS: HEPARIN 5,000 UNIT/1 ML VIAL SUB-Q SCH ×3 (05:49→22:00)
[2020-03-27] MEDS: SODIUM BICARBONATE 150 MEQ in DEXTROSE 5% IN WATER 1,000 ML IV SCH (05:55)
[2020-03-27 06:29] LABS: INR 1.43 (0.87-1.13)
[2020-03-27 06:37] LABS: Mean Corpuscular HGB Conc 33 % (32-34); Mean Corpuscular Volume 98 fl (84-94); Platelet Count 158 K/mm3 (140-440); Red Blood Count 1.77 M/mm3 (3.65-5.03)
[2020-03-27 06:40] LABS: Red Cell Distribution Width 22.3 % (13.2-15.2)
[2020-03-27 06:42] LABS: Hematocrit 17.3 % (35.5-45.6); Hemoglobin 5.7 gm/dl (11.8-15.2)
[2020-03-27 06:48] LABS: Calcium 7.7 mg/dL (8.4-10.2)
[2020-03-27 09:09] LABS: Band Neutrophils # (Manual) 1.9 K/mm3; Basophils % (Manual) 0 % (0.0-1.8); Eosinophils % (Manual) 0 % (0.0-4.3); Total Cells Counted 100
[2020-03-27 09:13] LABS: Sickle Cells 1+
[2020-03-27 09:14] LABS: Anisocytosis 1+
[2020-03-27 09:15] LABS: Ovalocytes Few
[2020-03-27 09:16] LABS: Bite Cells Rare
[2020-03-27 09:17] LABS: Platelet Estimate Consistent w Auto
--- NOTE | 2020-03-27 09:55 | Progress Note ---
Assessment and Plan 1. Acute kidney injury: Vasomotor KAILA superimposed on CKD stage 4 in the setting of volume depletion. CT abdomen negative for hydro. Urine studies ordered. Continue IV fluids. Monitor renal function. Creatinine level continue to increase. Renal prognosis is guarded. Avoid nephrotoxic agents. Meds dosage based on GFR. 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 2. FEN: Hyperkalemia, improved with medications, monitor. Hyperchloremic metabolic acidosis, improved, monitor. Monitor lytes and volume status. 3. Sickle cell crisis: IV fluids and pain meds. Followed by Heme-Onc. 4. Anemia, POA: Epogen. S/p PRBC. Monitor. Subjective: Patient was seen and examined at the bedside. No new complaint. Examination: General appearance: well-developed, appears stated age, not in distress HEENT: ATNC, pupils equal Neck: trachea midline Respiratory: ctab Heart: regular, S1S2, no murmur Gastrointestinal: soft, normoactive bowel sounds, not tender Integumentary: no rash, warm and dry Neurologic: alert, oriented, moving extremities Ext: no edema Subjective Date of service: 03/27/20 Objective - Vital Signs Vital signs: Vital Signs - 12hr 03/26/20 03/26/20 03/27/20 22:31 22:51 06:06 Temperature 99.2 F 97.2 F L 99.3 F Pulse Rate 104 H 103 H 107 H Respiratory 20 18 18 Rate Blood Pressure 125/72 129/72 106/88 O2 Sat by Pulse 100 97 93 Oximetry 03/27/20 07:20 Temperature 98.3 F Pulse Rate 111 H Respiratory 18 Rate Blood Pressure 140/74 O2 Sat by Pulse 96 Oximetry - Lab 03/27/20 10:00 03/27/20 05:50 Most recent lab results Calcium 7.7 mg/dL (8.4-10.2) L 03/27/20 05:50 Phosphorus 2.70 mg/dL (2.5-4.5) 03/27/20 05:50 Magnesium 2.20 mg/dL (1.7-2.3) 03/25/20 22:49 Medications & Allergies - Medications Allergies/Adverse Reactions: Allergies ketorolac [From Toradol] Allergy (Verified 03/25/20 13:12) Unknown promethazine [From Phenergan] Allergy (Verified 03/25/20 13:12) Unknown Active Medications: Generic Name Dose Route Start Last Admin Trade Name Freq PRN Reason Stop Dose Admin Acetaminophen 650 mg 03/26/20 02:58 03/26/20 19:27 Tylenol PO 650 mg Q4H PRN Administration Pain MILD(1-3)/Fever >100.5/KRISHNAMURTHY Bisacodyl 10 mg 03/26/20 02:58 Dulcolax [place] QDAY PRN Constipation unrelieved by MOM Dextrose 0 ml 03/26/20 03:00 D50w (25gm) Syringe IV Q30MIN PRN Hypoglycemia Protocol Diphenhydramine HCl 25 mg 03/26/20 03:01 03/27/20 01:05 Benadryl IV 25 mg Q6H PRN Administration Itching Folic Acid 1 mg 03/26/20 10:00 03/26/20 10:08 Folvite PO 1 mg QDAY NARGIS Administration Heparin Sodium (Porcine) 5,000 unit 03/26/20 06:00 03/27/20 05:49 Heparin SUB-Q 5,000 unit Q8HR NARGIS Administration Hydromorphone HCl 2 mg 03/26/20 15:30 03/27/20 05:48 Dilaudid IV 2 mg Q3H PRN Administration Pain , Severe (7-10) Sodium Bicarbonate 150 meq/ 1,150 mls @ 75 mls/hr 03/26/20 17:00 03/27/20 05:55 Dextrose IV 75 mls/hr DIRECT NARGIS Administration Magnesium Hydroxide 30 ml 03/26/20 02:58 Milk Of Magnesia PO Q4H PRN Constipation Multivitamins 1 each 03/26/20 10:00 03/26/20 10:08 Theragran Tab PO 1 each QDAY NARGIS Administration Ondansetron HCl 4 mg 03/26/20 02:58 03/27/20 05:48 Zofran IV 4 mg Q8H PRN Administration Nausea And Vomiting Oxycodone/Acetaminophen 2 tab 03/27/20 08:06 Percocet 5/325 PO Q8H PRN Pain, Moderate (4-6) Senna 17.2 mg 03/26/20 22:00 03/26/20 21:41 Senokot PO 17.2 mg QHS NARGIS Administration Sodium Chloride 10 ml 03/26/20 10:00 03/26/20 21:43 Sodium Chloride Flush Syringe 10 Ml IV 10 ml BID NARGIS Administration Sodium Chloride 10 ml 03/26/20 02:58 Sodium Chloride Flush Syringe 10 Ml IV PRN PRN LINE FLUSH
[2020-03-27] MEDS: FOLIC ACID 1 MG TAB PO SCH (09:57)
[2020-03-27] MEDS: MULTIVITAMINS ,THERAPEUTIC TAB PO SCH (09:57)
[2020-03-27 11:59] LABS: Creatinine,Urine 71.3 mg/dL (0.1-20.0); Protein/Creatinine Ratio,Urine 1.32
--- NOTE | 2020-03-27 12:34 | Progress Note ---
Assessment and Plan Assessment and plan: (1) Sickle cell anemia with crisis Current Visit: Yes Status: Acute Plan to address problem: Hemoglobin remains less than 7 Transfuse today Hematology oncology recommendations appreciated (2) KAILA on also stressed to CKD (chronic kidney disease) Current Visit: Yes Status: Acute Plan to address problem: Improved From vasomotor nephropathy (3) Hyperkalemia Current Visit: Yes Status: Acute Plan to address problem: Improved (4) Metabolic acidosis Current Visit: Yes Status: Acute Plan to address problem: This has resolved Discontinue bicarbonate (5) DVT prophylaxis Current Visit: Yes Status: Acute Plan to address problem: Patient placed on subcutaneous heparin. (6) Full code status Current Visit: Yes Status: Acute History Interval history: Still has back pain. Denies any shortness of breath or palpitations. Hemoglobin still less than 7. Plan to transfuse as per hematology oncology Hospitalist Physical - Physical exam Narrative exam: VITAL SIGNS: Reviewed. GENERAL: Awake and alert on response to questions HEAD: No signs of head trauma. EYES: Pupils are equal. Extraocular motions intact. EARS: Hearing grossly intact. MOUTH: Oropharynx is normal. NECK: No adenopathy, no JVD. CHEST: Chest with diminished breath sounds bilaterally. No wheezes, rales, or rhonchi. CARDIAC: Regular rate and rhythm. S1 and S2, without murmurs, gallops, or rubs. VASCULAR: No Edema. Peripheral pulses normal and equal in all extremities. ABDOMEN: Soft, non tender and non distended. No rebound or guarding, and no masses palpated. Bowel Sounds normal. MUSCULOSKELETAL: Good range of motion of all major joints. Extremities without clubbing, cyanosis or edema. NEUROLOGIC EXAM: Alert and oriented x3. No focal neurologic deficits PSYCHIATRIC: Stable mood SKIN: No obvious lesions - Constitutional Vitals: Temp Pulse Resp BP Pulse Ox 98.2 F 107 H 18 141/66 97 03/27/20 11:29 03/27/20 11:29 03/27/20 11:29 03/27/20 11:29 03/27/20 11:29 Results - Labs CBC & Chem 7: 03/27/20 10:00 03/27/20 05:50 Labs: Laboratory Last Values WBC 31.1 K/mm3 (4.5-11.0) H 03/27/20 05:50 RBC 1.77 M/mm3 (3.65-5.03) L 03/27/20 05:50 Hgb 5.7 gm/dl (11.8-15.2) L* 03/27/20 05:50 Hct 17.3 % (35.5-45.6) L* 03/27/20 05:50 MCV 98 fl (84-94) H 03/27/20 05:50 MCH 33 pg (28-32) H 03/27/20 05:50 MCHC 33 % (32-34) 03/27/20 05:50 RDW 22.3 % (13.2-15.2) H 03/27/20 05:50 Plt Count 158 K/mm3 (140-440) 03/27/20 05:50 Lymph % (Auto) 2.2 % (13.4-35.0) L 03/26/20 05:00 Graham % (Auto) 0.6 % (0.0-7.3) 03/26/20 05:00 Eos % (Auto) 0.3 % (0.0-4.3) 03/26/20 05:00 Baso % (Auto) 0.1 % (0.0-1.8) 03/26/20 05:00 Lymph # (Auto) 0.3 K/mm3 (1.2-5.4) L 03/26/20 05:00 Graham # (Auto) 0.1 K/mm3 (0.0-0.8) 03/26/20 05:00 Eos # (Auto) 0.0 K/mm3 (0.0-0.4) 03/26/20 05:00 Baso # (Auto) 0.0 K/mm3 (0.0-0.1) 03/26/20 05:00 Add Manual Diff Complete 03/27/20 05:50 Total Counted 100 03/27/20 05:50 Seg Neutrophils % Dining Service Worker 03/26/20 05:00 Seg Neuts % (Manual) 81.0 % (40.0-70.0) H 03/27/20 05:50 Band Neutrophils % 6.0 % 03/27/20 05:50 Lymphocytes % (Manual) 12.0 % (13.4-35.0) L 03/27/20 05:50 Reactive Lymphs % (Man) 0 % 03/27/20 05:50 Monocytes % (Manual) 1.0 % (0.0-7.3) 03/27/20 05:50 Eosinophils % (Manual) 0 % (0.0-4.3) 03/27/20 05:50 Basophils % (Manual) 0 % (0.0-1.8) 03/27/20 05:50 Metamyelocytes % 0 % 03/27/20 05:50 Myelocytes % 0 % 03/27/20 05:50 Promyelocytes % 0 % 03/27/20 05:50 Blast Cells % 0 % 03/27/20 05:50 Nucleated RBC % 2.0 % (0.0-0.9) H 03/27/20 05:50 Seg Neutrophils # 12.9 K/mm3 (1.8-7.7) H 03/26/20 05:00 Seg Neutrophils # Man 25.2 K/mm3 (1.8-7.7) H 03/27/20 05:50 Band Neutrophils # 1.9 K/mm3 03/27/20 05:50 Lymphocytes # (Manual) 3.7 K/mm3 (1.2-5.4) 03/27/20 05:50 Abs React Lymphs (Man) 0.0 K/mm3 03/27/20 05:50 Monocytes # (Manual) 0.3 K/mm3 (0.0-0.8) 03/27/20 05:50 Eosinophils # (Manual) 0.0 K/mm3 (0.0-0.4) 03/27/20 05:50 Basophils # (Manual) 0.0 K/mm3 (0.0-0.1) 03/27/20 05:50 Metamyelocytes # 0.0 K/mm3 03/27/20 05:50 Myelocytes # 0.0 K/mm3 03/27/20 05:50 Promyelocytes # 0.0 K/mm3 03/27/20 05:50 Blast Cells # 0.0 K/mm3 03/27/20 05:50 WBC Morphology Not Reportable 03/27/20 05:50 Hypersegmented Neuts Not Reportable 03/27/20 05:50 Hyposegmented Neuts Not Reportable 03/27/20 05:50 Hypogranular Neuts Not Reportable 03/27/20 05:50 Smudge Cells Not Reportable 03/27/20 05:50 Toxic Granulation Not Reportable 03/27/20 05:50 Toxic Vacuolation Not Reportable 03/27/20 05:50 Dohle Bodies Not Reportable 03/27/20 05:50 Pelger-Huet Anomaly Not Reportable 03/27/20 05:50 Sammy Rods Not Reportable 03/27/20 05:50 Platelet Estimate Consistent w auto 03/27/20 05:50 Clumped Platelets Not Reportable 03/27/20 05:50 Plt Clumps, EDTA Not Reportable 03/27/20 05:50 Large Platelets Not Reportable 03/27/20 05:50 Giant Platelets Not Reportable 03/27/20 05:50 Platelet Satelliting Not Reportable 03/27/20 05:50 Plt Morphology Comment Not Reportable 03/27/20 05:50 RBC Morphology Not Reportable 03/27/20 05:50 Dimorphic RBCs Not Reportable 03/27/20 05:50 Polychromasia Not Reportable 03/27/20 05:50 Hypochromasia Not Reportable 03/27/20 05:50 Poikilocytosis Not Reportable 03/27/20 05:50 Anisocytosis 1+ 03/27/20 05:50 Microcytosis Not Reportable 03/27/20 05:50 Macrocytosis Not Reportable 03/27/20 05:50 Spherocytes Not Reportable 03/27/20 05:50 Pappenheimer Bodies Not Reportable 03/27/20 05:50 Sickle Cells 1+ 03/27/20 05:50 Target Cells Not Reportable 03/27/20 05:50 Tear Drop Cells Not Reportable 03/27/20 05:50 Ovalocytes Few 03/27/20 05:50 Helmet Cells Not Reportable 03/27/20 05:50 Shen-[place] Bodies Not Reportable 03/27/20 05:50 [place] Rings Not Reportable 03/27/20 05:50 Tamara Cells Not Reportable 03/27/20 05:50 Bite Cells Rare 03/27/20 05:50 Crenated Cell Not Reportable 03/27/20 05:50 Elliptocytes Not Reportable 03/27/20 05:50 Acanthocytes (Spur) Not Reportable 03/27/20 05:50 Rouleaux Not Reportable 03/27/20 05:50 Hemoglobin C Crystals Not Reportable 03/27/20 05:50 Schistocytes Not Reportable 03/27/20 05:50 Malaria parasites Not Reportable 03/27/20 05:50 Percent Retic 2.51 % (0.78-2.58) 03/25/20 16:00 Teto Bodies Not Reportable 03/27/20 05:50 Hem Pathologist Commnt No 03/27/20 05:50 PT 17.6 Sec. (12.2-14.9) H 03/27/20 05:50 INR 1.43 (0.87-1.13) H 03/27/20 05:50 Sodium 135 mmol/L (137-145) L 03/27/20 05:50 Potassium 4.6 mmol/L (3.6-5.0) 03/27/20 05:50 Chloride 103.9 mmol/L (98-107) 03/27/20 05:50 Carbon Dioxide 22 mmol/L (22-30) D 03/27/20 05:50 Anion Gap 14 mmol/L 03/27/20 05:50 BUN 40 mg/dL (9-20) H 03/27/20 05:50 Creatinine 5.0 mg/dL (0.8-1.3) H 03/27/20 05:50 Estimated GFR 13 ml/min 03/27/20 05:50 BUN/Creatinine Ratio 8 % 03/27/20 05:50 Glucose 98 mg/dL (75-100) 03/27/20 05:50 Calcium 7.7 mg/dL (8.4-10.2) L 03/27/20 05:50 Phosphorus 2.70 mg/dL (2.5-4.5) 03/27/20 05:50 Magnesium 2.20 mg/dL (1.7-2.3) 03/25/20 22:49 Total Bilirubin 0.90 mg/dL (0.1-1.2) 03/25/20 22:49 AST 29 units/L (5-40) 03/25/20 22:49 ALT 22 units/L (7-56) 03/25/20 22:49 Alkaline Phosphatase 109 units/L (35-129) 03/25/20 22:49 Lactate Dehydrogenase 405 units/L (91-180) H 03/26/20 05:48 Total Creatine Kinase 113 units/L (55-170) 03/25/20 22:49 Total Protein 7.7 g/dL (6.3-8.2) 03/25/20 22:49 Albumin 4.5 g/dL (3.9-5) 03/25/20 22:49 Albumin/Globulin Ratio 1.4 % 03/25/20 22:49 Lipase 71 units/L (13-60) H 03/25/20 22:49 Procalcitonin 163.07 ng/mL (<0.15) 03/26/20 16:17 PTH Intact 344.2 pg/mL (15-65) H 03/27/20 05:50 Urine Color Yellow (Yellow) 03/26/20 00:32 Urine Turbidity Clear (Clear) 03/26/20 00:32 Urine pH 5.0 (5.0-7.0) 03/26/20 00:32 Ur Specific [place] 1.012 (1.003-1.030) 03/26/20 00:32 Urine Protein >500 mg/dL (Negative) 03/26/20 00:32 Urine Glucose (UA) Neg mg/dL (Negative) 03/26/20 00:32 Urine Ketones Neg mg/dL (Negative) 03/26/20 00:32 Urine Blood Neg (Negative) 03/26/20 00:32 Urine Nitrite Neg (Negative) 03/26/20 00:32 Urine Bilirubin Neg (Negative) 03/26/20 00:32 Urine Urobilinogen < 2.0 mg/dL (<2.0) 03/26/20 00:32 Ur Leukocyte Esterase Neg (Negative) 03/26/20 00:32 Urine WBC (Auto) 3.0 /HPF (0.0-6.0) 03/26/20 00:32 Urine RBC (Auto) 4.0 /HPF (0.0-6.0) 03/26/20 00:32 U Epithel Cells (Auto) < 1.0 /HPF (0-13.0) 03/26/20 00:32 Urine Mucus Few /HPF 03/26/20 00:32 Urine Eosinophils None seen (None Seen) 03/26/20 03:11 Urine Creatinine 71.3 mg/dL (0.1-20.0) H 03/27/20 03:11 Protein/Creatinin Ratio 1.32 03/27/20 03:11 Urine Sodium 21 mmol/L 03/27/20 03:11 Urine Total Protein 94 mg/dL (5-11.8) H 03/27/20 03:11 Blood Type O POSITIVE 03/26/20 16:15 Antibody Screen Negative 03/26/20 16:15 Crossmatch See Detail 03/26/20 16:15 Rios/IV: Voiding Method Urinal IV Catheter Type [Right Chest] IVAD / Port Active Medications - Current Medications Current Medications: Generic Name Dose Route Start Last Admin Trade Name Freq PRN Reason Stop Dose Admin Acetaminophen 650 mg 03/26/20 02:58 03/26/20 19:27 Tylenol PO 650 mg Q4H PRN Administration Pain MILD(1-3)/Fever >100.5/KRISHNAMURTHY Bisacodyl 10 mg 03/26/20 02:58 Dulcolax [place] QDAY PRN Constipation unrelieved by MOM Dextrose 0 ml 03/26/20 03:00 D50w (25gm) Syringe IV Q30MIN PRN Hypoglycemia Protocol Diphenhydramine HCl 25 mg 03/26/20 03:01 03/27/20 01:05 Benadryl IV 25 mg Q6H PRN Administration Itching Folic Acid 1 mg 03/26/20 10:00 03/27/20 09:57 Folvite PO 1 mg QDAY NARGIS Administration Heparin Sodium (Porcine) 5,000 unit 03/26/20 06:00 03/27/20 05:49 Heparin SUB-Q 5,000 unit Q8HR NARGIS Administration Hydromorphone HCl 2 mg 03/26/20 15:30 03/27/20 09:56 Dilaudid IV 2 mg Q3H PRN Administration Pain , Severe (7-10) Sodium Bicarbonate 150 meq/ 1,150 mls @ 75 mls/hr 03/26/20 17:00 03/27/20 05:55 Dextrose IV 75 mls/hr DIRECT NARGIS Administration Magnesium Hydroxide 30 ml 03/26/20 02:58 Milk Of Magnesia PO Q4H PRN Constipation Multivitamins 1 each 03/26/20 10:00 03/27/20 09:57 Theragran Tab PO 1 each QDAY NARGIS Administration Ondansetron HCl 4 mg 03/26/20 02:58 03/27/20 05:48 Zofran IV 4 mg Q8H PRN Administration Nausea And Vomiting Oxycodone/Acetaminophen 2 tab 03/27/20 08:06 Percocet 5/325 PO Q8H PRN Pain, Moderate (4-6) Senna 17.2 mg 03/26/20 22:00 03/26/20 21:41 Senokot PO 17.2 mg QHS NARGIS Administration Sodium Chloride 10 ml 03/26/20 10:00 03/26/20 21:43 Sodium Chloride Flush Syringe 10 Ml IV 10 ml BID NARGIS Administration Sodium Chloride 10 ml 03/26/20 02:58 Sodium Chloride Flush Syringe 10 Ml IV PRN PRN LINE FLUSH
[2020-03-27 13:01] LABS: Mean Corpuscular HGB Conc 33 % (32-34); Mean Corpuscular Volume 97 fl (84-94); Platelet Count 160 K/mm3 (140-440); Red Blood Count 1.74 M/mm3 (3.65-5.03)
[2020-03-27 13:05] LABS: Hematocrit 16.9 % (35.5-45.6); Hemoglobin 5.6 gm/dl (11.8-15.2); Red Cell Distribution Width 22.9 % (13.2-15.2)
[2020-03-27] MEDS: oxyCODONE /ACETAMINOPHEN 5-325MG TAB PO PRN (14:29)
[2020-03-27] MEDS: SENNOSIDES 8.6 MG TAB PO SCH (22:33)
[2020-03-28] MEDS ORDERED: SODIUM CHLORIDE 0.9% 500 ML 500 ML IV ONE (00:44)
[2020-03-28] MEDS: HYDROmorphone 2 MG/1 ML INJ IV PRN ×5 (02:11→14:37)
[2020-03-28] MEDS: diphenhydrAMINE 50 MG/ML VIAL IV PRN ×4 (02:17→20:56)
[2020-03-28] MEDS: ACETAMINOPHEN 325 MG TAB PO PRN (02:17)
[2020-03-28] MEDS: HEPARIN 5,000 UNIT/1 ML VIAL SUB-Q SCH (05:54)
[2020-03-28] MEDS: oxyCODONE /ACETAMINOPHEN 5-325MG TAB PO PRN ×2 (05:58→16:41)
[2020-03-28] MEDS: ONDANSETRON 4 MG/2 ML INJ IV PRN ×2 (08:10→16:41)
--- NOTE | 2020-03-28 08:48 | Progress Note ---
Assessment and Plan 1. Acute kidney injury: Vasomotor KAILA superimposed on CKD stage 4 in the setting of volume depletion. CT abdomen negative for hydro. IV fluids restarted. Monitor renal function. Creatinine level is about the same as yesterday. Renal prognosis is guarded. Avoid nephrotoxic agents. Meds dosage based on GFR. 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 2. FEN: Hyperkalemia, improved with medications, monitor. Hyperchloremic metabolic acidosis, improved, monitor. Monitor lytes and volume status. 3. Sickle cell crisis: Pain control. Followed by Heme-Onc. 4. Anemia, POA: Epogen. S/p PRBC. Monitor. Subjective: Patient was seen and examined at the bedside. No new complaint. Examination: General appearance: well-developed, appears stated age, not in distress HEENT: ATNC, pupils equal Neck: trachea midline Respiratory: ctab Heart: regular, S1S2, no murmur Gastrointestinal: soft, normoactive bowel sounds, not tender Integumentary: no rash, warm and dry Neurologic: alert, oriented, moving extremities Ext: no edema Subjective Date of service: 03/28/20 Objective - Vital Signs Vital signs: Vital Signs - 12hr 03/27/20 03/28/20 03/28/20 23:31 03:10 03:25 Temperature 98.3 F 99.1 F 98.6 F Pulse Rate 93 H 104 H 90 Respiratory 18 18 20 Rate Blood Pressure 153/76 138/76 158/85 O2 Sat by Pulse 94 96 96 Oximetry 03/28/20 03/28/20 03/28/20 03:55 04:25 04:55 Temperature 99.1 F 98.4 F 98.7 F Pulse Rate 99 H 89 86 Respiratory 20 20 18 Rate Blood Pressure 171/90 171/92 168/85 O2 Sat by Pulse 97 96 95 Oximetry - Lab 03/28/20 09:00 03/28/20 00:54 Most recent lab results Calcium 8.0 mg/dL (8.4-10.2) L 03/28/20 00:54 Phosphorus 2.70 mg/dL (2.5-4.5) 03/27/20 05:50 Magnesium 2.20 mg/dL (1.7-2.3) 03/25/20 22:49 Urine Creatinine 71.3 mg/dL (0.1-20.0) H 03/27/20 03:11 Urine Sodium 21 mmol/L 03/27/20 03:11 Urine Total Protein 94 mg/dL (5-11.8) H 03/27/20 03:11 Medications & Allergies - Medications Allergies/Adverse Reactions: Allergies ketorolac [From Toradol] Allergy (Verified 03/25/20 13:12) Unknown promethazine [From Phenergan] Allergy (Verified 03/25/20 13:12) Unknown Active Medications: Generic Name Dose Route Start Last Admin Trade Name Freq PRN Reason Stop Dose Admin Acetaminophen 650 mg 03/26/20 02:58 03/28/20 02:17 Tylenol PO 650 mg Q4H PRN Administration Pain MILD(1-3)/Fever >100.5/KRISHNAMURTHY Bisacodyl 10 mg 03/26/20 02:58 Dulcolax [place] QDAY PRN Constipation unrelieved by MOM Dextrose 0 ml 03/26/20 03:00 D50w (25gm) Syringe IV Q30MIN PRN Hypoglycemia Protocol Diphenhydramine HCl 25 mg 03/26/20 03:01 03/28/20 08:05 Benadryl IV 25 mg Q6H PRN Administration Itching Folic Acid 1 mg 03/26/20 10:00 03/27/20 09:57 Folvite PO 1 mg QDAY NARGIS Administration Heparin Sodium (Porcine) 5,000 unit 03/26/20 06:00 03/28/20 05:54 Heparin SUB-Q Not Given Q8HR NARGIS Hydromorphone HCl 2 mg 03/26/20 15:30 03/28/20 08:05 Dilaudid IV 2 mg Q3H PRN Administration Pain , Severe (7-10) Magnesium Hydroxide 30 ml 03/26/20 02:58 Milk Of Magnesia PO Q4H PRN Constipation Multivitamins 1 each 03/26/20 10:00 03/27/20 09:57 Theragran Tab PO 1 each QDAY NARGIS Administration Ondansetron HCl 4 mg 03/26/20 02:58 03/28/20 08:10 Zofran IV 4 mg Q8H PRN Administration Nausea And Vomiting Oxycodone/Acetaminophen 2 tab 03/27/20 08:06 03/28/20 05:58 Percocet 5/325 PO 2 tab Q8H PRN Administration Pain, Moderate (4-6) Senna 17.2 mg 03/26/20 22:00 03/27/20 22:33 Senokot PO 17.2 mg QHS NARGIS Administration Sodium Chloride 10 ml 03/26/20 10:00 03/27/20 22:33 Sodium Chloride Flush Syringe 10 Ml IV 10 ml BID NARGIS Administration Sodium Chloride 10 ml 03/26/20 02:58 Sodium Chloride Flush Syringe 10 Ml IV PRN PRN LINE FLUSH
[2020-03-28] MEDS ORDERED: SODIUM CHLORIDE 0.9% 500 ML 500 ML IV NR (09:13)
[2020-03-28] MEDS ORDERED: hydrOXYzine HCL 25 MG TAB PO PRN (09:18)
--- NOTE | 2020-03-28 09:33 | Hem/Onc Progress Note ---
Subjective Interval history: heme data review 44yo disabled AA man with SCD, CKD creat 4 came from long term--says he was incarcerated last week has followed with Dr. 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 in anemia no evidence of infection now REC: RBC transfusions for pain control "palliative" caution with [id number]/hr max (he isn't volume deplete) opiate meds as needed for pain--> try for an outpatient plan after discharge that will sustain him atarax and benadryl for itching Vital Signs Temp Pulse Resp BP Pulse Ox 98.7 F 86 18 168/85 95 03/28/20 04:55 03/28/20 04:55 03/28/20 04:55 03/28/20 04:55 03/28/20 04:55 Temperature -Last 24 Hours Temperature 98.7 F Temperature 98.4 F Temperature 99.1 F Temperature 98.6 F Temperature 99.1 F Temperature 98.3 F Temperature 99.0 F Temperature 98.8 F Temperature 98.2 F Active Medications Enoxaparin Sodium (Enoxaparin) 40 mg SUB-Q QDAY NARGIS; Protocol Laboratory Last Values WBC 30.5 K/mm3 (4.5-11.0) H 03/27/20 10:00 Hgb 5.6 gm/dl (11.8-15.2) L* 03/27/20 10:00 Hct 16.9 % (35.5-45.6) L* 03/27/20 10:00 Plt Count 160 K/mm3 (140-440) 03/27/20 10:00 Creatinine 4.7 mg/dL (0.8-1.3) H 03/28/20 00:54 Crossmatch See Detail 03/26/20 16:15 Objective - Constitutional Vitals: Last Vital Signs Temp 98.7 F 03/28/20 04:55 Pulse 86 03/28/20 04:55 Resp 18 03/28/20 04:55 BP 168/85 03/28/20 04:55 Pulse Ox 95 03/28/20 04:55 - Labs Lab Results: Laboratory Results - last 24 hr 03/26/20 03/26/20 03/26/20 03:11 16:15 16:17 WBC RBC Hgb Hct MCV MCH MCHC RDW Plt Count Sodium Potassium Chloride Carbon Dioxide Anion Gap BUN Creatinine Estimated GFR BUN/Creatinine Ratio Glucose Calcium Procalcitonin 163.07 Urine Eosinophils None seen Urine Creatinine Protein/Creatinin Ratio Urine Sodium Urine Total Protein Blood Type O POSITIVE Antibody Screen Negative Crossmatch See Detail 03/27/20 03/27/20 03/28/20 03:11 10:00 00:54 WBC 30.5 H RBC 1.74 L Hgb 5.6 L* Hct 16.9 L* MCV 97 H MCH 32 MCHC 33 RDW 22.9 H Plt Count 160 Sodium 140 Potassium 4.7 Chloride 106.9 Carbon Dioxide 22 Anion Gap 16 BUN 40 H Creatinine 4.7 H Estimated GFR 13 BUN/Creatinine Ratio 9 Glucose 72 L Calcium 8.0 L Procalcitonin Urine Eosinophils Urine Creatinine 71.3 H Protein/Creatinin Ratio 1.32 Urine Sodium 21 Urine Total Protein 94 H Blood Type Antibody Screen Crossmatch Medications & Allergies - Medications Allergies/Adverse Reactions: Allergies ketorolac [From Toradol] Allergy (Verified 03/25/20 13:12) Unknown promethazine [From Phenergan] Allergy (Verified 03/25/20 13:12) Unknown Active Medications: Generic Name Dose Route Start Last Admin Trade Name Clement PRN Reason Stop Dose Admin Acetaminophen 650 mg 03/26/20 02:58 03/28/20 02:17 Tylenol PO 650 mg Q4H PRN Administration Pain MILD(1-3)/Fever >100.5/KRISHNAMURTHY Bisacodyl 10 mg 03/26/20 02:58 Dulcolax [place] QDAY PRN Constipation unrelieved by MOM Deferoxamine Mesylate 500 mg 03/28/20 18:00 Desferal IV 03/28/20 18:01 Q4HR ONE Dextrose 0 ml 03/26/20 03:00 D50w (25gm) Syringe IV Q30MIN PRN Hypoglycemia Protocol Diphenhydramine HCl 25 mg 03/26/20 03:01 03/28/20 08:05 Benadryl IV 25 mg Q6H PRN Administration Itching Folic Acid 1 mg 03/26/20 10:00 03/27/20 09:57 Folvite PO 1 mg QDAY NARGIS Administration Heparin Sodium (Porcine) 5,000 unit 03/26/20 06:00 03/28/20 05:54 Heparin SUB-Q Not Given Q8HR NARGIS Hydromorphone HCl 2 mg 03/26/20 15:30 03/28/20 08:05 Dilaudid IV 2 mg Q3H PRN Administration Pain , Severe (7-10) Hydroxyzine HCl 25 mg 03/28/20 09:18 Atarax PO Q4H PRN Itching Sodium Chloride 500 mls @ 0 mls/hr 03/28/20 09:13 Nacl 0.9% 500 Ml IV 03/28/20 23:59 ONCE NR As Directed Magnesium Hydroxide 30 ml 03/26/20 02:58 Milk Of Magnesia PO Q4H PRN Constipation Multivitamins 1 each 03/26/20 10:00 03/27/20 09:57 Theragran Tab PO 1 each QDAY NARGIS Administration Ondansetron HCl 4 mg 03/26/20 02:58 03/28/20 08:10 Zofran IV 4 mg Q8H PRN Administration Nausea And Vomiting Oxycodone/Acetaminophen 2 tab 03/27/20 08:06 03/28/20 05:58 Percocet 5/325 PO 2 tab Q8H PRN Administration Pain, Moderate (4-6) Senna 17.2 mg 03/26/20 22:00 03/27/20 22:33 Senokot PO 17.2 mg QHS NARGIS Administration Sodium Chloride 10 ml 03/26/20 10:00 03/27/20 22:33 Sodium Chloride Flush Syringe 10 Ml IV 10 ml BID NARGIS Administration Sodium Chloride 10 ml 03/26/20 02:58 Sodium Chloride Flush Syringe 10 Ml IV PRN PRN LINE FLUSH
[2020-03-28] MEDS: MULTIVITAMINS ,THERAPEUTIC TAB PO SCH (09:37)
[2020-03-28] MEDS: FOLIC ACID 1 MG TAB PO SCH (09:37)
[2020-03-28] MEDS ORDERED: ENOXAPARIN 30 MG/0.3 ML INJ SUB-Q SCH (10:00)
[2020-03-28] MEDS ORDERED: EPOETIN ALFA 10,000 UNIT/1 ML INJ SUB-Q SCH (10:00)
[2020-03-28 10:05] LABS: Hematocrit 21.9 % (35.5-45.6); Hemoglobin 7.3 gm/dl (11.8-15.2); Mean Corpuscular HGB Conc 34 % (32-34); Mean Corpuscular Volume 96 fl (84-94); Platelet Count 168 K/mm3 (140-440); Red Blood Count 2.28 M/mm3 (3.65-5.03)
[2020-03-28 10:15] LABS: Red Cell Distribution Width 22.5 % (13.2-15.2)
--- NOTE | 2020-03-28 11:05 | Progress Note ---
Assessment and Plan Assessment and plan: (1) Sickle cell anemia with crisis Current Visit: Yes Status: Acute Plan to address problem: Hb stable Pain medications adjusted today Hematology oncology recommendations appreciated (2) KAILA on CKD (chronic kidney disease) Current Visit: Yes Status: Acute Plan to address problem: Improved From vasomotor nephropathy Nephrology following. He may need to be initiated on HD if no improvement is noted (3) Hyperkalemia Current Visit: Yes Status: Acute Plan to address problem: Improved (4) Metabolic acidosis Current Visit: Yes Status: Acute Plan to address problem: This has resolved Discontinue bicarbonate (5) DVT prophylaxis Current Visit: Yes Status: Acute Plan to address problem: Patient placed on subcutaneous heparin. (6) Full code status Current Visit: Yes Status: Acute History Interval history: Still rates pain 8/10. Will adjust pain medications Denies any shortness of breath or palpitations. Hemoglobin stable today Hospitalist Physical - Physical exam Narrative exam: VITAL SIGNS: Reviewed. GENERAL: Awake and alert on response to questions HEAD: No signs of head trauma. EYES: Pupils are equal. Extraocular motions intact. EARS: Hearing grossly intact. MOUTH: Oropharynx is normal. NECK: No adenopathy, no JVD. CHEST: Chest with diminished breath sounds bilaterally. No wheezes, rales, or rhonchi. CARDIAC: Regular rate and rhythm. S1 and S2, without murmurs, gallops, or rubs. VASCULAR: No Edema. Peripheral pulses normal and equal in all extremities. ABDOMEN: Soft, non tender and non distended. No rebound or guarding, and no masses palpated. Bowel Sounds normal. MUSCULOSKELETAL: Good range of motion of all major joints. Extremities without clubbing, cyanosis or edema. NEUROLOGIC EXAM: Alert and oriented x3. No focal neurologic deficits PSYCHIATRIC: Stable mood SKIN: No obvious lesions - Constitutional Vitals: Temp Pulse Resp BP Pulse Ox 98.7 F 86 18 168/85 95 03/28/20 04:55 03/28/20 04:55 03/28/20 04:55 03/28/20 04:55 03/28/20 04:55 Results - Labs CBC & Chem 7: 03/28/20 09:00 03/28/20 00:54 Labs: Laboratory Last Values WBC 31.6 K/mm3 (4.5-11.0) H 03/28/20 09:00 RBC 2.28 M/mm3 (3.65-5.03) L 03/28/20 09:00 Hgb 7.3 gm/dl (11.8-15.2) L 03/28/20 09:00 Hct 21.9 % (35.5-45.6) L 03/28/20 09:00 MCV 96 fl (84-94) H 03/28/20 09:00 MCH 32 pg (28-32) 03/28/20 09:00 MCHC 34 % (32-34) 03/28/20 09:00 RDW 22.5 % (13.2-15.2) H 03/28/20 09:00 Plt Count 168 K/mm3 (140-440) 03/28/20 09:00 Lymph % (Auto) 2.2 % (13.4-35.0) L 03/26/20 05:00 [place] % (Auto) 0.6 % (0.0-7.3) 03/26/20 05:00 Eos % (Auto) 0.3 % (0.0-4.3) 03/26/20 05:00 Baso % (Auto) 0.1 % (0.0-1.8) 03/26/20 05:00 Lymph # (Auto) 0.3 K/mm3 (1.2-5.4) L 03/26/20 05:00 [place] # (Auto) 0.1 K/mm3 (0.0-0.8) 03/26/20 05:00 Eos # (Auto) 0.0 K/mm3 (0.0-0.4) 03/26/20 05:00 Baso # (Auto) 0.0 K/mm3 (0.0-0.1) 03/26/20 05:00 Add Manual Diff Complete 03/27/20 05:50 Total Counted 100 03/27/20 05:50 Seg Neutrophils % Livestock [employer]cker 03/26/20 05:00 Seg Neuts % (Manual) 81.0 % (40.0-70.0) H 03/27/20 05:50 Band Neutrophils % 6.0 % 03/27/20 05:50 Lymphocytes % (Manual) 12.0 % (13.4-35.0) L 03/27/20 05:50 Reactive Lymphs % (Man) 0 % 03/27/20 05:50 Monocytes % (Manual) 1.0 % (0.0-7.3) 03/27/20 05:50 Eosinophils % (Manual) 0 % (0.0-4.3) 03/27/20 05:50 Basophils % (Manual) 0 % (0.0-1.8) 03/27/20 05:50 Metamyelocytes % 0 % 03/27/20 05:50 Myelocytes % 0 % 03/27/20 05:50 Promyelocytes % 0 % 03/27/20 05:50 Blast Cells % 0 % 03/27/20 05:50 Nucleated RBC % 2.0 % (0.0-0.9) H 03/27/20 05:50 Seg Neutrophils # 12.9 K/mm3 (1.8-7.7) H 03/26/20 05:00 Seg Neutrophils # Man 25.2 K/mm3 (1.8-7.7) H 03/27/20 05:50 Band Neutrophils # 1.9 K/mm3 03/27/20 05:50 Lymphocytes # (Manual) 3.7 K/mm3 (1.2-5.4) 03/27/20 05:50 Abs React Lymphs (Man) 0.0 K/mm3 03/27/20 05:50 Monocytes # (Manual) 0.3 K/mm3 (0.0-0.8) 03/27/20 05:50 Eosinophils # (Manual) 0.0 K/mm3 (0.0-0.4) 03/27/20 05:50 Basophils # (Manual) 0.0 K/mm3 (0.0-0.1) 03/27/20 05:50 Metamyelocytes # 0.0 K/mm3 03/27/20 05:50 Myelocytes # 0.0 K/mm3 03/27/20 05:50 Promyelocytes # 0.0 K/mm3 03/27/20 05:50 Blast Cells # 0.0 K/mm3 03/27/20 05:50 WBC Morphology Not Reportable 03/27/20 05:50 Hypersegmented Neuts Not Reportable 03/27/20 05:50 Hyposegmented Neuts Not Reportable 03/27/20 05:50 Hypogranular Neuts Not Reportable 03/27/20 05:50 Smudge Cells Not Reportable 03/27/20 05:50 Toxic Granulation Not Reportable 03/27/20 05:50 Toxic Vacuolation Not Reportable 03/27/20 05:50 Dohle Bodies Not Reportable 03/27/20 05:50 Pelger-Huet Anomaly Not Reportable 03/27/20 05:50 Sammy Rods Not Reportable 03/27/20 05:50 Platelet Estimate Consistent w auto 03/27/20 05:50 Clumped Platelets Not Reportable 03/27/20 05:50 Plt Clumps, EDTA Not Reportable 03/27/20 05:50 Large Platelets Not Reportable 03/27/20 05:50 Giant Platelets Not Reportable 03/27/20 05:50 Platelet Satelliting Not Reportable 03/27/20 05:50 Plt Morphology Comment Not Reportable 03/27/20 05:50 RBC Morphology Not Reportable 03/27/20 05:50 Dimorphic RBCs Not Reportable 03/27/20 05:50 Polychromasia Not Reportable 03/27/20 05:50 Hypochromasia Not Reportable 03/27/20 05:50 Poikilocytosis Not Reportable 03/27/20 05:50 Anisocytosis 1+ 03/27/20 05:50 Microcytosis Not Reportable 03/27/20 05:50 Macrocytosis Not Reportable 03/27/20 05:50 Spherocytes Not Reportable 03/27/20 05:50 Pappenheimer Bodies Not Reportable 03/27/20 05:50 Sickle Cells 1+ 03/27/20 05:50 Target Cells Not Reportable 03/27/20 05:50 Tear Drop Cells Not Reportable 03/27/20 05:50 Ovalocytes Few 03/27/20 05:50 Helmet Cells Not Reportable 03/27/20 05:50 Shen-On[place] Bodies Not Reportable 03/27/20 05:50 [place] Rings Not Reportable 03/27/20 05:50 Tamara Cells Not Reportable 03/27/20 05:50 Bite Cells Rare 03/27/20 05:50 Crenated Cell Not Reportable 03/27/20 05:50 Elliptocytes Not Reportable 03/27/20 05:50 Acanthocytes (Spur) Not Reportable 03/27/20 05:50 Rouleaux Not Reportable 03/27/20 05:50 Hemoglobin C Crystals Not Reportable 03/27/20 05:50 Schistocytes Not Reportable 03/27/20 05:50 Malaria parasites Not Reportable 03/27/20 05:50 Percent Retic 2.51 % (0.78-2.58) 03/25/20 16:00 Teto Bodies Not Reportable 03/27/20 05:50 Hem Pathologist Commnt No 03/27/20 05:50 PT 17.6 Sec. (12.2-14.9) H 03/27/20 05:50 INR 1.43 (0.87-1.13) H 03/27/20 05:50 Sodium 140 mmol/L (137-145) 03/28/20 00:54 Potassium 4.7 mmol/L (3.6-5.0) 03/28/20 00:54 Chloride 106.9 mmol/L (98-107) 03/28/20 00:54 Carbon Dioxide 22 mmol/L (22-30) 03/28/20 00:54 Anion Gap 16 mmol/L 03/28/20 00:54 BUN 40 mg/dL (9-20) H 03/28/20 00:54 Creatinine 4.7 mg/dL (0.8-1.3) H 03/28/20 00:54 Estimated GFR 13 ml/min 03/28/20 00:54 BUN/Creatinine Ratio 9 % 03/28/20 00:54 Glucose 72 mg/dL (75-100) L 03/28/20 00:54 Calcium 8.0 mg/dL (8.4-10.2) L 03/28/20 00:54 Phosphorus 2.70 mg/dL (2.5-4.5) 03/27/20 05:50 Magnesium 2.20 mg/dL (1.7-2.3) 03/25/20 22:49 Total Bilirubin 0.90 mg/dL (0.1-1.2) 03/25/20 22:49 AST 29 units/L (5-40) 03/25/20 22:49 ALT 22 units/L (7-56) 03/25/20 22:49 Alkaline Phosphatase 109 units/L (35-129) 03/25/20 22:49 Lactate Dehydrogenase 405 units/L (91-180) H 03/26/20 05:48 Total Creatine Kinase 113 units/L (55-170) 03/25/20 22:49 Total Protein 7.7 g/dL (6.3-8.2) 03/25/20 22:49 Albumin 4.5 g/dL (3.9-5) 03/25/20 22:49 Albumin/Globulin Ratio 1.4 % 03/25/20 22:49 Lipase 71 units/L (13-60) H 03/25/20 22:49 Procalcitonin 163.07 ng/mL (<0.15) 03/26/20 16:17 PTH Intact 344.2 pg/mL (15-65) H 03/27/20 05:50 Urine Color Yellow (Yellow) 03/26/20 00:32 Urine Turbidity Clear (Clear) 03/26/20 00:32 Urine pH 5.0 (5.0-7.0) 03/26/20 00:32 Ur Specific [place] 1.012 (1.003-1.030) 03/26/20 00:32 Urine Protein >500 mg/dL (Negative) 03/26/20 00:32 Urine Glucose (UA) Neg mg/dL (Negative) 03/26/20 00:32 Urine Ketones Neg mg/dL (Negative) 03/26/20 00:32 Urine Blood Neg (Negative) 03/26/20 00:32 Urine Nitrite Neg (Negative) 03/26/20 00:32 Urine Bilirubin Neg (Negative) 03/26/20 00:32 Urine Urobilinogen < 2.0 mg/dL (<2.0) 03/26/20 00:32 Ur Leukocyte Esterase Neg (Negative) 03/26/20 00:32 Urine WBC (Auto) 3.0 /HPF (0.0-6.0) 03/26/20 00:32 Urine RBC (Auto) 4.0 /HPF (0.0-6.0) 03/26/20 00:32 U Epithel Cells (Auto) < 1.0 /HPF (0-13.0) 03/26/20 00:32 Urine Mucus Few /HPF 03/26/20 00:32 Urine Eosinophils None seen (None Seen) 03/26/20 03:11 Urine Creatinine 71.3 mg/dL (0.1-20.0) H 03/27/20 03:11 Protein/Creatinin Ratio 1.32 03/27/20 03:11 Urine Sodium 21 mmol/L 03/27/20 03:11 Urine Total Protein 94 mg/dL (5-11.8) H 03/27/20 03:11 Blood Type O POSITIVE 03/26/20 16:15 Antibody Screen Negative 03/26/20 16:15 Crossmatch See Detail 03/26/20 16:15 Rios/IV: Voiding Method Toilet IV Catheter Type [Right Chest] IVAD / Port Active Medications - Current Medications Current Medications: Generic Name Dose Route Start Last Admin Trade Name Freq PRN Reason Stop Dose Admin Acetaminophen 650 mg 03/26/20 02:58 03/28/20 02:17 Tylenol PO 650 mg Q4H PRN Administration Pain MILD(1-3)/Fever >100.5/KRISHNAMURTHY Bisacodyl 10 mg 03/26/20 02:58 Dulcolax [place] QDAY PRN Constipation unrelieved by MOM Dextrose 0 ml 03/26/20 03:00 D50w (25gm) Syringe IV Q30MIN PRN Hypoglycemia Protocol Diphenhydramine HCl 25 mg 03/26/20 03:01 03/28/20 08:05 Benadryl IV 25 mg Q6H PRN Administration Itching Enoxaparin Sodium 30 mg 03/28/20 10:00 Enoxaparin SUB-Q QDAY NARGIS Epoetin Hasmukh 10,000 unit 03/28/20 10:00 Procrit SUB-Q Q48HR NARGIS Folic Acid 1 mg 03/26/20 10:00 03/28/20 09:37 Folvite PO 1 mg QDAY NARGIS Administration Hydromorphone HCl 3 mg 03/28/20 11:02 Dilaudid IV Q3H PRN Pain , Severe (7-10) Hydroxyzine HCl 25 mg 03/28/20 09:18 Atarax PO Q4H PRN Itching Sodium Chloride 500 mls @ 0 mls/hr 03/28/20 09:13 Nacl 0.9% 500 Ml IV 03/28/20 23:59 ONCE NR As Directed Deferoxamine Mesylate 500 mg/ 250 mls @ 62.5 mls/hr 03/28/20 20:00 Sodium Chloride IV 03/28/20 23:59 ONCE ONE Magnesium Hydroxide 30 ml 03/26/20 02:58 Milk Of Magnesia PO Q4H PRN Constipation Multivitamins 1 each 03/26/20 10:00 03/28/20 09:37 Theragran Tab PO 1 each QDAY NARGIS Administration Ondansetron HCl 4 mg 03/26/20 02:58 03/28/20 08:10 Zofran IV 4 mg Q8H PRN Administration Nausea And Vomiting Oxycodone/Acetaminophen 2 tab 03/27/20 08:06 03/28/20 05:58 Percocet 5/325 PO 2 tab Q8H PRN Administration Pain, Moderate (4-6) Senna 17.2 mg 03/26/20 22:00 03/27/20 22:33 Senokot PO 17.2 mg QHS NARGIS Administration Sodium Chloride 10 ml 03/26/20 10:00 03/27/20 22:33 Sodium Chloride Flush Syringe 10 Ml IV 10 ml BID NARGIS Administration Sodium Chloride 10 ml 03/26/20 02:58 Sodium Chloride Flush Syringe 10 Ml IV PRN PRN LINE FLUSH
[2020-03-28] MEDS: HYDROmorphone 1 MG/1 ML INJ IV PRN ×2 (17:46→20:54)
[2020-03-28] MEDS ORDERED: DEFEROXAMINE IV ONE ×2 (18:00→20:00)
[2020-03-28] MEDS ORDERED: SODIUM CHLORIDE 0.9% IV ONE (20:00)
[2020-03-28] MEDS ORDERED: SODIUM CHLORIDE 0.45% 1000 ML 1,000 ML IV SCH (23:00)
[2020-03-28] MEDS: SENNOSIDES 8.6 MG TAB PO SCH (23:20)
[2020-03-29] MEDS: HYDROmorphone 1 MG/1 ML INJ IV PRN ×3 (00:17→16:08)
[2020-03-29] MEDS: diphenhydrAMINE 50 MG/ML VIAL IV PRN ×2 (03:08→16:05)
[2020-03-29 04:20] LABS: Mean Corpuscular HGB Conc 34 % (32-34); Mean Corpuscular Volume 97 fl (84-94); Platelet Count 151 K/mm3 (140-440); Red Blood Count 2.04 M/mm3 (3.65-5.03)
[2020-03-29 04:24] LABS: Red Cell Distribution Width 22.3 % (13.2-15.2)
[2020-03-29 04:26] LABS: Hematocrit 19.8 % (35.5-45.6); Hemoglobin 6.7 gm/dl (11.8-15.2)
[2020-03-29] MEDS ORDERED: SODIUM CHLORIDE 0.9% 500 ML 500 ML IV ONE (04:51)
[2020-03-29] MEDS ORDERED: SODIUM POLYSTYRENE 15 GM/60 ML ORAL LIQD PO SCH (08:00)
[2020-03-29] MEDS ORDERED: ENOXAPARIN 40 MG/0.4 ML INJ SUB-Q SCH (10:00)
[2020-03-29] MEDS ORDERED: HEPARIN 5,000 UNIT/1 ML VIAL SUB-Q SCH (10:00)
[2020-03-29] MEDS: FOLIC ACID 1 MG TAB PO SCH (10:20)
[2020-03-29] MEDS: MULTIVITAMINS ,THERAPEUTIC TAB PO SCH (10:20)
--- NOTE | 2020-03-29 12:15 | Progress Note ---
Assessment and Plan 1. Acute kidney injury: Vasomotor KAILA superimposed on CKD stage 4 in the setting of volume depletion. CT abdomen negative for hydro. Continue IV fluids. Monitor renal function. Creatinine level is improving. Renal prognosis is guarded. Avoid nephrotoxic agents. Meds dosage based on GFR. 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 2. FEN: Hyperkalemia, kayexalate ordered, monitor. Hyperchloremic metabolic acidosis, monitor. Monitor lytes and volume status. 3. Sickle cell crisis: Pain control. Followed by Heme-Onc. 4. Anemia, POA: Epogen. S/p PRBC. Monitor. Patient was advised to follow with us in 1-2 weeks after d/c. Subjective: Patient was seen and examined at the bedside. No new complaint. Examination: General appearance: well-developed, appears stated age, not in distress HEENT: ATNC, pupils equal Neck: trachea midline Respiratory: ctab Heart: regular, S1S2, no murmur Gastrointestinal: soft, normoactive bowel sounds, not tender Integumentary: no rash, warm and dry Neurologic: alert, oriented, moving extremities Ext: no edema Subjective Date of service: 03/29/20 Objective - Vital Signs Vital signs: Vital Signs - 12hr 03/29/20 03/29/20 03/29/20 03:19 05:00 07:20 Temperature 97.3 F L 99.5 F Pulse Rate 105 H 98 H Respiratory 20 18 Rate Blood Pressure 160/96 156/82 Blood Pressure [Right] O2 Sat by Pulse 98 93 Oximetry 03/29/20 03/29/20 03/29/20 07:35 07:48 08:05 Temperature 98.9 F 99.5 F 98.8 F Pulse Rate 91 H 100 H 92 H Respiratory 18 18 18 Rate Blood Pressure 169/91 156/82 165/88 Blood Pressure [Right] O2 Sat by Pulse 94 93 95 Oximetry 03/29/20 03/29/20 03/29/20 08:35 08:53 09:05 Temperature 98.8 F 98.6 F 98.7 F Pulse Rate 89 89 87 Respiratory 18 18 18 Rate Blood Pressure 163/87 155/78 Blood Pressure 166/91 [Right] O2 Sat by Pulse 95 95 97 Oximetry 03/29/20 03/29/20 03/29/20 09:35 10:00 10:03 Temperature 98.7 F 98.6 F 98.7 F Pulse Rate 85 85 86 Respiratory 18 18 18 Rate Blood Pressure 156/77 157/75 155/74 Blood Pressure [Right] O2 Sat by Pulse 97 97 97 Oximetry 03/29/20 12:02 Temperature 98.8 F Pulse Rate 92 H Respiratory 18 Rate Blood Pressure Blood Pressure 162/99 [Right] O2 Sat by Pulse 97 Oximetry - Lab 03/29/20 15:55 03/29/20 00:44 Most recent lab results Calcium 8.0 mg/dL (8.4-10.2) L 03/29/20 00:44 Phosphorus 2.70 mg/dL (2.5-4.5) 03/27/20 05:50 Magnesium 2.20 mg/dL (1.7-2.3) 03/25/20 22:49 Urine Creatinine 71.3 mg/dL (0.1-20.0) H 03/27/20 03:11 Urine Sodium 21 mmol/L 03/27/20 03:11 Urine Total Protein 94 mg/dL (5-11.8) H 03/27/20 03:11 Medications & Allergies - Medications Allergies/Adverse Reactions: Allergies ketorolac [From Toradol] Allergy (Verified 03/25/20 13:12) Unknown promethazine [From Phenergan] Allergy (Verified 03/25/20 13:12) Unknown Active Medications: Generic Name Dose Route Start Last Admin Trade Name Freq PRN Reason Stop Dose Admin Acetaminophen 650 mg 03/26/20 02:58 03/28/20 02:17 Tylenol PO 650 mg Q4H PRN Administration Pain MILD(1-3)/Fever >100.5/KRISHNAMURTHY Bisacodyl 10 mg 03/26/20 02:58 Dulcolax [place] QDAY PRN Constipation unrelieved by MOM Dextrose 0 ml 03/26/20 03:00 D50w (25gm) Syringe IV Q30MIN PRN Hypoglycemia Protocol Diphenhydramine HCl 25 mg 03/26/20 03:01 03/29/20 03:08 Benadryl IV 25 mg Q6H PRN Administration Itching Epoetin Hasmukh 10,000 unit 03/28/20 10:00 03/28/20 18:27 Procrit SUB-Q 10,000 unit Q48HR NARGIS Administration Folic Acid 1 mg 03/26/20 10:00 03/29/20 10:20 Folvite PO 1 mg QDAY NARGIS Administration Heparin Sodium (Porcine) 5,000 unit 03/29/20 10:00 Heparin SUB-Q Q12HR NARGIS Hydromorphone HCl 3 mg 03/28/20 18:00 03/29/20 03:07 Dilaudid IV 3 mg Q3H PRN Administration Pain , Severe (7-10) Hydroxyzine HCl 25 mg 03/28/20 09:18 Atarax PO Q4H PRN Itching Sodium Chloride 1,000 mls @ 100 mls/hr 03/28/20 23:00 03/29/20 00:18 Nacl 0.45% 1000 Ml IV 100 mls/hr DIRECT NARGIS Administration Magnesium Hydroxide 30 ml 03/26/20 02:58 Milk Of Magnesia PO Q4H PRN Constipation Multivitamins 1 each 03/26/20 10:00 03/29/20 10:20 Theragran Tab PO 1 each QDAY NARGIS Administration Ondansetron HCl 4 mg 03/26/20 02:58 03/28/20 16:41 Zofran IV 4 mg Q8H PRN Administration Nausea And Vomiting Oxycodone/Acetaminophen 2 tab 03/27/20 08:06 03/28/20 16:41 Percocet 5/325 PO 2 tab Q8H PRN Administration Pain, Moderate (4-6) Senna 17.2 mg 03/26/20 22:00 03/28/20 23:20 Senokot PO 17.2 mg QHS NARGIS Administration Sodium Chloride 10 ml 03/26/20 10:00 03/28/20 23:21 Sodium Chloride Flush Syringe 10 Ml IV 10 ml BID NARGIS Administration Sodium Chloride 10 ml 03/26/20 02:58 Sodium Chloride Flush Syringe 10 Ml IV PRN PRN LINE FLUSH
--- NOTE | 2020-03-29 12:48 | Progress Note ---
Assessment and Plan Assessment and plan: (1) Sickle cell anemia with crisis Current Visit: Yes Status: Acute Plan to address problem: Hb 6.7. Transfuse 1 unit today. Pain medications adjusted today Hematology oncology recommendations appreciated Will get stool occult blood (2) KAILA on CKD (chronic kidney disease) Current Visit: Yes Status: Acute Plan to address problem: Improved From vasomotor nephropathy Creatinine 4.4 today Nephrology following. He may need to be initiated on HD if no improvement is noted (3) Hyperkalemia Current Visit: Yes Status: Acute Plan to address problem: Kayexalate as needed (4) Metabolic acidosis Current Visit: Yes Status: Acute Plan to address problem: This has resolved Discontinue bicarbonate (5) DVT prophylaxis Current Visit: Yes Status: Acute Plan to address problem: Patient placed on subcutaneous heparin. (6) Full code status Current Visit: Yes Status: Acute History Interval history: Pain is better today Hemoglobin dropped to 6.7. Patient will get 1 unit PRBCs Denies any shortness of breath or palpitations. Hospitalist Physical - Physical exam Narrative exam: VITAL SIGNS: Reviewed. GENERAL: Awake and alert on response to questions HEAD: No signs of head trauma. EYES: Pupils are equal. Extraocular motions intact. EARS: Hearing grossly intact. MOUTH: Oropharynx is normal. NECK: No adenopathy, no JVD. CHEST: Chest with diminished breath sounds bilaterally. No wheezes, rales, or rhonchi. CARDIAC: Regular rate and rhythm. S1 and S2, without murmurs, gallops, or rubs. VASCULAR: No Edema. Peripheral pulses normal and equal in all extremities. ABDOMEN: Soft, non tender and non distended. No rebound or guarding, and no masses palpated. Bowel Sounds normal. MUSCULOSKELETAL: Good range of motion of all major joints. Extremities without clubbing, cyanosis or edema. NEUROLOGIC EXAM: Alert and oriented x3. No focal neurologic deficits PSYCHIATRIC: Stable mood SKIN: No obvious lesions - Constitutional Vitals: Temp Pulse Resp BP Pulse Ox 98.8 F 92 H 18 162/99 97 03/29/20 12:02 03/29/20 12:02 03/29/20 12:02 03/29/20 12:02 03/29/20 12:02 General appearance: Present: no acute distress, well-nourished Results - Labs CBC & Chem 7: 03/29/20 03:24 03/29/20 00:44 Labs: Laboratory Last Values WBC 25.9 K/mm3 (4.5-11.0) H 03/29/20 03:24 RBC 2.04 M/mm3 (3.65-5.03) L 03/29/20 03:24 Hgb 6.7 gm/dl (11.8-15.2) L 03/29/20 03:24 Hct 19.8 % (35.5-45.6) L* 03/29/20 03:24 MCV 97 fl (84-94) H 03/29/20 03:24 MCH 33 pg (28-32) H 03/29/20 03:24 MCHC 34 % (32-34) 03/29/20 03:24 RDW 22.3 % (13.2-15.2) H 03/29/20 03:24 Plt Count 151 K/mm3 (140-440) 03/29/20 03:24 Lymph % (Auto) 2.2 % (13.4-35.0) L 03/26/20 05:00 Morris % (Auto) 0.6 % (0.0-7.3) 03/26/20 05:00 Eos % (Auto) 0.3 % (0.0-4.3) 03/26/20 05:00 Baso % (Auto) 0.1 % (0.0-1.8) 03/26/20 05:00 Lymph # (Auto) 0.3 K/mm3 (1.2-5.4) L 03/26/20 05:00 Morris # (Auto) 0.1 K/mm3 (0.0-0.8) 03/26/20 05:00 Eos # (Auto) 0.0 K/mm3 (0.0-0.4) 03/26/20 05:00 Baso # (Auto) 0.0 K/mm3 (0.0-0.1) 03/26/20 05:00 Add Manual Diff Complete 03/27/20 05:50 Total Counted 100 03/27/20 05:50 Seg Neutrophils % Fruit Pitter 03/26/20 05:00 Seg Neuts % (Manual) 81.0 % (40.0-70.0) H 03/27/20 05:50 Band Neutrophils % 6.0 % 03/27/20 05:50 Lymphocytes % (Manual) 12.0 % (13.4-35.0) L 03/27/20 05:50 Reactive Lymphs % (Man) 0 % 03/27/20 05:50 Monocytes % (Manual) 1.0 % (0.0-7.3) 03/27/20 05:50 Eosinophils % (Manual) 0 % (0.0-4.3) 03/27/20 05:50 Basophils % (Manual) 0 % (0.0-1.8) 03/27/20 05:50 Metamyelocytes % 0 % 03/27/20 05:50 Myelocytes % 0 % 03/27/20 05:50 Promyelocytes % 0 % 03/27/20 05:50 Blast Cells % 0 % 03/27/20 05:50 Nucleated RBC % 2.0 % (0.0-0.9) H 03/27/20 05:50 Seg Neutrophils # 12.9 K/mm3 (1.8-7.7) H 03/26/20 05:00 Seg Neutrophils # Man 25.2 K/mm3 (1.8-7.7) H 03/27/20 05:50 Band Neutrophils # 1.9 K/mm3 03/27/20 05:50 Lymphocytes # (Manual) 3.7 K/mm3 (1.2-5.4) 03/27/20 05:50 Abs React Lymphs (Man) 0.0 K/mm3 03/27/20 05:50 Monocytes # (Manual) 0.3 K/mm3 (0.0-0.8) 03/27/20 05:50 Eosinophils # (Manual) 0.0 K/mm3 (0.0-0.4) 03/27/20 05:50 Basophils # (Manual) 0.0 K/mm3 (0.0-0.1) 03/27/20 05:50 Metamyelocytes # 0.0 K/mm3 03/27/20 05:50 Myelocytes # 0.0 K/mm3 03/27/20 05:50 Promyelocytes # 0.0 K/mm3 03/27/20 05:50 Blast Cells # 0.0 K/mm3 03/27/20 05:50 WBC Morphology Not Reportable 03/27/20 05:50 Hypersegmented Neuts Not Reportable 03/27/20 05:50 Hyposegmented Neuts Not Reportable 03/27/20 05:50 Hypogranular Neuts Not Reportable 03/27/20 05:50 Smudge Cells Not Reportable 03/27/20 05:50 Toxic Granulation Not Reportable 03/27/20 05:50 Toxic Vacuolation Not Reportable 03/27/20 05:50 Dohle Bodies Not Reportable 03/27/20 05:50 Pelger-Huet Anomaly Not Reportable 03/27/20 05:50 Sammy Rods Not Reportable 03/27/20 05:50 Platelet Estimate Consistent w auto 03/27/20 05:50 Clumped Platelets Not Reportable 03/27/20 05:50 Plt Clumps, EDTA Not Reportable 03/27/20 05:50 Large Platelets Not Reportable 03/27/20 05:50 Giant Platelets Not Reportable 03/27/20 05:50 Platelet Satelliting Not Reportable 03/27/20 05:50 Plt Morphology Comment Not Reportable 03/27/20 05:50 RBC Morphology Not Reportable 03/27/20 05:50 Dimorphic RBCs Not Reportable 03/27/20 05:50 Polychromasia Not Reportable 03/27/20 05:50 Hypochromasia Not Reportable 03/27/20 05:50 Poikilocytosis Not Reportable 03/27/20 05:50 Anisocytosis 1+ 03/27/20 05:50 Microcytosis Not Reportable 03/27/20 05:50 Macrocytosis Not Reportable 03/27/20 05:50 Spherocytes Not Reportable 03/27/20 05:50 Pappenheimer Bodies Not Reportable 03/27/20 05:50 Sickle Cells 1+ 03/27/20 05:50 Target Cells Not Reportable 03/27/20 05:50 Tear Drop Cells Not Reportable 03/27/20 05:50 Ovalocytes Few 03/27/20 05:50 Helmet Cells Not Reportable 03/27/20 05:50 [place] Bodies Not Reportable 03/27/20 05:50 Harviell Rings Not Reportable 03/27/20 05:50 Tamara Cells Not Reportable 03/27/20 05:50 Bite Cells Rare 03/27/20 05:50 Crenated Cell Not Reportable 03/27/20 05:50 Elliptocytes Not Reportable 03/27/20 05:50 Acanthocytes (Spur) Not Reportable 03/27/20 05:50 Rouleaux Not Reportable 03/27/20 05:50 Hemoglobin C Crystals Not Reportable 03/27/20 05:50 Schistocytes Not Reportable 03/27/20 05:50 Malaria parasites Not Reportable 03/27/20 05:50 Percent Retic 2.51 % (0.78-2.58) 03/25/20 16:00 Teto Bodies Not Reportable 03/27/20 05:50 Hem Pathologist Commnt No 03/27/20 05:50 PT 17.6 Sec. (12.2-14.9) H 03/27/20 05:50 INR 1.43 (0.87-1.13) H 03/27/20 05:50 Sodium 142 mmol/L (137-145) 03/29/20 00:44 Potassium 5.2 mmol/L (3.6-5.0) H 03/29/20 00:44 Chloride 109.2 mmol/L (98-107) H 03/29/20 00:44 Carbon Dioxide 21 mmol/L (22-30) L 03/29/20 00:44 Anion Gap 17 mmol/L 03/29/20 00:44 BUN 38 mg/dL (9-20) H 03/29/20 00:44 Creatinine 4.4 mg/dL (0.8-1.3) H 03/29/20 00:44 Estimated GFR 15 ml/min 03/29/20 00:44 BUN/Creatinine Ratio 9 % 03/29/20 00:44 Glucose 77 mg/dL (75-100) 03/29/20 00:44 Calcium 8.0 mg/dL (8.4-10.2) L 03/29/20 00:44 Phosphorus 2.70 mg/dL (2.5-4.5) 03/27/20 05:50 Magnesium 2.20 mg/dL (1.7-2.3) 03/25/20 22:49 Total Bilirubin 0.90 mg/dL (0.1-1.2) 03/25/20 22:49 AST 29 units/L (5-40) 03/25/20 22:49 ALT 22 units/L (7-56) 03/25/20 22:49 Alkaline Phosphatase 109 units/L (35-129) 03/25/20 22:49 Lactate Dehydrogenase 405 units/L (91-180) H 03/26/20 05:48 Total Creatine Kinase 113 units/L (55-170) 03/25/20 22:49 Total Protein 7.7 g/dL (6.3-8.2) 03/25/20 22:49 Albumin 4.5 g/dL (3.9-5) 03/25/20 22:49 Albumin/Globulin Ratio 1.4 % 03/25/20 22:49 Lipase 71 units/L (13-60) H 03/25/20 22:49 Procalcitonin 163.07 ng/mL (<0.15) 03/26/20 16:17 PTH Intact 344.2 pg/mL (15-65) H 03/27/20 05:50 Urine Color Yellow (Yellow) 03/26/20 00:32 Urine Turbidity Clear (Clear) 03/26/20 00:32 Urine pH 5.0 (5.0-7.0) 03/26/20 00:32 Ur Specific [place] 1.012 (1.003-1.030) 03/26/20 00:32 Urine Protein >500 mg/dL (Negative) 03/26/20 00:32 Urine Glucose (UA) Neg mg/dL (Negative) 03/26/20 00:32 Urine Ketones Neg mg/dL (Negative) 03/26/20 00:32 Urine Blood Neg (Negative) 03/26/20 00:32 Urine Nitrite Neg (Negative) 03/26/20 00:32 Urine Bilirubin Neg (Negative) 03/26/20 00:32 Urine Urobilinogen < 2.0 mg/dL (<2.0) 03/26/20 00:32 Ur Leukocyte Esterase Neg (Negative) 03/26/20 00:32 Urine WBC (Auto) 3.0 /HPF (0.0-6.0) 03/26/20 00:32 Urine RBC (Auto) 4.0 /HPF (0.0-6.0) 03/26/20 00:32 U Epithel Cells (Auto) < 1.0 /HPF (0-13.0) 03/26/20 00:32 Urine Mucus Few /HPF 03/26/20 00:32 Urine Eosinophils None seen (None Seen) 03/26/20 03:11 Urine Creatinine 71.3 mg/dL (0.1-20.0) H 03/27/20 03:11 Protein/Creatinin Ratio 1.32 03/27/20 03:11 Urine Sodium 21 mmol/L 03/27/20 03:11 Urine Total Protein 94 mg/dL (5-11.8) H 03/27/20 03:11 Blood Type O POSITIVE 03/26/20 16:15 Antibody Screen Negative 03/26/20 16:15 Crossmatch See Detail 03/26/20 16:15 Microbiology: Microbiology 03/27/20 08:36 Nares - Left MRSA Culture - Final Rios/IV: Voiding Method Urinal IV Catheter Type [Right Chest] IVAD / Port Active Medications - Current Medications Current Medications: Generic Name Dose Route Start Last Admin Trade Name Freq PRN Reason Stop Dose Admin Acetaminophen 650 mg 03/26/20 02:58 03/28/20 02:17 Tylenol PO 650 mg Q4H PRN Administration Pain MILD(1-3)/Fever >100.5/KRISHNAMURTHY Amlodipine Besylate 10 mg 03/29/20 13:00 Amlodipine PO QDAY NARGIS Bisacodyl 10 mg 03/26/20 02:58 Dulcolax NV QDAY PRN Constipation unrelieved by MOM Dextrose 0 ml 03/26/20 03:00 D50w (25gm) Syringe IV Q30MIN PRN Hypoglycemia Protocol Diphenhydramine HCl 25 mg 03/26/20 03:01 03/29/20 03:08 Benadryl IV 25 mg Q6H PRN Administration Itching Epoetin Hasmukh 10,000 unit 03/28/20 10:00 03/28/20 18:27 Procrit SUB-Q 10,000 unit Q48HR NARGIS Administration Folic Acid 1 mg 03/26/20 10:00 03/29/20 10:20 Folvite PO 1 mg QDAY NARGIS Administration Heparin Sodium (Porcine) 5,000 unit 03/29/20 10:00 Heparin SUB-Q Q12HR NARGIS Hydromorphone HCl 3 mg 03/28/20 18:00 03/29/20 03:07 Dilaudid IV 3 mg Q3H PRN Administration Pain , Severe (7-10) Hydroxyzine HCl 25 mg 03/28/20 09:18 Atarax PO Q4H PRN Itching Sodium Chloride 1,000 mls @ 100 mls/hr 03/28/20 23:00 03/29/20 00:18 Nacl 0.45% 1000 Ml IV 100 mls/hr DIRECT NARGIS Administration Magnesium Hydroxide 30 ml 03/26/20 02:58 Milk Of Magnesia PO Q4H PRN Constipation Multivitamins 1 each 03/26/20 10:00 03/29/20 10:20 Theragran Tab PO 1 each QDAY NARGIS Administration Ondansetron HCl 4 mg 03/26/20 02:58 03/28/20 16:41 Zofran IV 4 mg Q8H PRN Administration Nausea And Vomiting Oxycodone/Acetaminophen 2 tab 03/27/20 08:06 03/28/20 16:41 Percocet 5/325 PO 2 tab Q8H PRN Administration Pain, Moderate (4-6) Senna 17.2 mg 03/26/20 22:00 03/28/20 23:20 Senokot PO 17.2 mg QHS NARGIS Administration Sodium Chloride 10 ml 03/26/20 10:00 03/28/20 23:21 Sodium Chloride Flush Syringe 10 Ml IV 10 ml BID NARGIS Administration Sodium Chloride 10 ml 03/26/20 02:58 Sodium Chloride Flush Syringe 10 Ml IV PRN PRN LINE FLUSH
[2020-03-29] MEDS ORDERED: amLODIPine 10 MG TAB PO SCH (13:00)
[2020-03-29 16:37] VITALS: BP 195/105
[2020-03-29 18:33] LABS: Hematocrit 25.7 % (35.5-45.6); Hemoglobin 8.5 gm/dl (11.8-15.2)
--- NOTE | 2020-03-29 19:04 | Discharge Summary ---
Providers - Providers Date of Admission: 03/26/20 15:08 Date of discharge: 03/29/20 Attending physician: KRISTIAN PEREZ 03/26/20 00:59 Consult to Physician [CONS] Urgent Comment: Consulting Provider: FABI THAKKAR Physician Instructions: Reason For Exam: ckd 03/26/20 08:19 Consult to Physician [CONS] Routine Comment: Consulting Provider: MAJO DE SOUZA Physician Instructions: Reason For Exam: Sickle cell crisis Primary care physician: SAMPLE PREPARATION SUPERVISOR Hospitalization Condition: Fair Hospital course: 44-year-old male with known history of sickle cell disease, chronic kidney disease and gout currently incarcerated presented to the emergency room complaining of generalized body aches and pain, abdominal cramping and nausea. Pain is more in the lower extremities and lower back. Patient follows up with a shirring machine operator at [facility] [address]. He is normally on hydrocodone and folic acid at home but he has not been able to get his medication on a regular basis because he is currently incarcerated. He denies any fever or chills, no shortness of breath, no headache or dizziness, no hematuria or dysuria, no chest pain. Work-up in the emergency room revealed a hemoglobin of 7.3 and KAILA. Chest xray showed no infiltrates, CT abdomen and pelvis showed chronic changes. He was admitted for sickle cell pain crisis, KAILA, hyperkalemia. He was placed on IV hydration. Nephrology and hematology were consulted. His hb dropped below 6 during this admission and he was transfused packed rbc. His renal function grad ually improved. 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 His pain medications were titrated to maintain adequate pain control. On 03/29. His Hb dropped again to 6.7 and he got transfused. After the transfusion, I was called by RN that he decided to leave AMA despite understanding the risks with leaving while still unstable. He says he will follow up with shirring machine operator. Disposition: -07 LEFT AGAINST MED ADVICE - Discharge Diagnoses (1) Acute on chronic anemia Status: Acute (2) Hyperkalemia Status: Acute (3) Metabolic acidosis Status: Acute (4) Sickle cell anemia with crisis Status: Acute Core Measure Documentation - Palliative Care Palliative Care/ Comfort Measures: Not Applicable - Core Measures Any of the following diagnoses?: none Exam - Physical Exam Narrative exam: VITAL SIGNS: Reviewed. GENERAL: Awake and alert on response to questions HEAD: No signs of head trauma. EYES: Pupils are equal. Extraocular motions intact. EARS: Hearing grossly intact. MOUTH: Oropharynx is normal. NECK: No adenopathy, no JVD. CHEST: Chest with diminished breath sounds bilaterally. No wheezes, rales, or rhonchi. CARDIAC: Regular rate and rhythm. S1 and S2, without murmurs, gallops, or rubs. VASCULAR: No Edema. Peripheral pulses normal and equal in all extremities. ABDOMEN: Soft, non tender and non distended. No rebound or guarding, and no masses palpated. Bowel Sounds normal. MUSCULOSKELETAL: Good range of motion of all major joints. Extremities without clubbing, cyanosis or edema. NEUROLOGIC EXAM: Alert and oriented x3. No focal neurologic deficits PSYCHIATRIC: Stable mood SKIN: No obvious lesions - Constitutional Vitals: Temp Pulse Resp BP Pulse Ox 98.6 F 89 20 195/105 91 03/29/20 15:52 03/29/20 15:52 03/29/20 15:52 03/29/20 15:52 03/29/20 15:52 Plan Follow up with: PRIMARY MD RADHA [Primary Care Provider] - 3-5 Days
== END 2020-03-29 19:08 | disposition left against medical advice (07) | DRG 811 ==
LOC: EEVIPCON 12:56 → ED 12:56 → 3A 03-26 01:07 → 3B-SURG 03-26 02:17 → OBSVTOIN 03-26 15:08
PROVIDERS: ADMIT Internal Medicine Geriatric Medicine; ATTEND Internal Medicine
PROC: 30233N1 Transfusion of Nonautologous Red Blood Cells into Peripheral Vein, Percutaneous Approach (ICD-10-PCS; principal; 2020-03-26)
DX: D57.00 Hb-SS disease with crisis, unspecified (principal); N17.0 Acute kidney failure with tubular necrosis; E87.2 Acidosis; N18.5 Chronic kidney disease, stage 5; E87.5 Hyperkalemia; Z88.8 Allergy status to other drugs, medicaments and biological substances; M10.9 Gout, unspecified; E16.2 Hypoglycemia, unspecified
CPT/HCPCS: 36415; 71046; 74176; 80048; 80053; 81001; 82550; 82570; 83615; 83690; 83735; 83970; 84100; 84132; 84145; 84156; 84300; 85007; 85014; 85018; 85025; 85027; 85045; 85610; 86850; 86900; 86901; 86920; 87116; 87641; 89050; 93005; 96365; 96375; G0378; J0610; J0885; J0895; J1170; J1200; J1644; J2405; J7030; J7040; J7050; J7070; P9016